=== PATIENT | male | born 1960 | race African-American/Black ===

== ENCOUNTER 2020-03-09 21:54 | Emergency (ER) | payer BC, OTHER ==
--- OUTSIDE RECORDS SUMMARY | 2020-03-09 21:58 | XMS REPORT | Clinical Summary ---
:1960 Author Organization [facility] Address [address] [place] [address] Care Team Providers Name Role Phone Magdaleno Webber DO Primary Care Provider Allergies Active Allergy Reactions Severity Noted Date Comments Lisinopril Other (See Comments) 06/24/2016 Cough Medications Medication Sig Dispensed Refills Start End Date Status Date insulin Use 2 syringes 200 each 1 Activ e syringe-needle daily 9 U-100 (BD INSULIN SYRINGE ULTRA-FINE) 0.3 mL 31 gauge x 5/16" syringeIndications : Uncontrolled type 2 diabetes mellitus with circulatory disorder, with long-term current use of insulin (HCC) magnesium oxide Take 1 tablet 180 tablet 3 05/14/20 Active (MAG-OX) 400 mg (400 mg total) 9 20 (241.3 mg by mouth 2 magnesium) tablet (two) times a day. aspirin (ECOTRIN) Take 1 tablet 90 tablet 3 06/23/20 Active 81 MG enteric (81 mg total) 9 20 coated tablet by mouth daily. predniSONE Take 1 tablet 90 tablet 3 06/23/20 Activ e (DELTASONE) 5 mg (5 mg total) 9 20 tablet by mouth daily. ergocalciferol Take 1 capsule 12 capsule 3 07/14/20 Active (VITAMIN D2) (50,000 Units 9 20 50,000 unit total) by capsule mouth once a week. Monday carvedilol (COREG) Take 1 tablet 180 tablet 3 Active 6.25 MG (6.25 mg 0 21 tabletIndications: total) by Essential mouth 2 (two) hypertension, times a day Heart replaced by with meals. transplant ([facility]) pantoprazole Take 1 tablet 90 tablet 3 11/25/19 Act damien (PROTONIX) 40 MG (40 mg total) 0 21 EC tablet by mouth daily. gabapentin Take 1 tablet 90 tablet 3 11/25/19 Activ e (NEURONTIN) 800 mg (800 mg total) 0 21 tablet by mouth nightly. pravastatin Take 1 tablet 90 tablet 3 11/25/19 Acti ve (PRAVACHOL) 80 MG (80 mg total) 0 21 tablet by mouth every evening. torsemide Take 2 tablets 360 tablet 3 11/25/19 Acti ve (DEMADEX) 20 MG (40 mg total) 0 21 tablet by mouth 2 (two) times a day. insulin NPH Inject 30 20 mL 5 Active (NovoLIN N NPH units in the 0 U-100 Insulin) 100 morning before unit/mL breakfast and injectionIndicatio 20 units in ns: Uncontrolled the evening type 2 diabetes before dinner mellitus with under the skin circulatory disorder, with long-term current use of insulin ([facility]) tacrolimus Take 3 90 capsule 0 Active (PROGRAF) 0.5 MG capsules (1.5 0 capsule mg total) by mouth every morning for 30 days. Z94.1 Heart TXP S/P tacrolimus Take 1 capsule 0 Acti ve (PROGRAF) 1 MG (1 mg total) 0 capsule by mouth daily. Z94.1 Heart TXP S/P insulin ASPART Inject 12 5 pen 3 Activ e (NovoLOG Flexpen units 3 times 0 U-100 Insulin) 100 a day before unit/mL (3 mL) each meal insulin along with penIndications: correction Uncontrolled type scale 2 diabetes mellitus with circulatory disorder, with long-term current use of insulin ([facility]) mycophenolate Take 1 tablet 60 tablet 11 02/17/20 Ac tive (CellCept) 500 mg (500 mg total) 0 21 tabletIndications: by mouth 2 Status post (two) times a orthotopic heart day. transplant ([facility]) pravastatin Take 1 tablet 30 tablet 11 04/09/20 Disc ontinued (PRAVACHOL) 80 MG (80 mg total) 8 19 (Reorder) tablet by mouth every evening. mycophenolate Take 3 tablets 180 tablet 11 06/24/20 Discontinued (CELLCEPT) 500 mg (1,500 mg 8 19 (R eorder) tablet total) by mouth 2 (two) times a day. Z94.1 heart / Z94.0 kidney transplant 03/08/2017 tacrolimus Take 1 capsule 120 capsule 11 08/05/20 Di scontinued (PROGRAF) 0.5 MG (0.5 mg total) 8 19 (Reorder) capsule by mouth every morning. TOTAL DOSE: 2.5 mg in AM and 2 mg in PM ergocalciferol Take 1 capsule 12 capsule 3 05/15/20 Discontinued (VITAMIN D2) (50,000 Units 9 19 (Re order) 50,000 unit total) by capsule mouth once a week. Monday tacrolimus Take 2 360 capsule 3 08/08/20 Discont inued (PROGRAF) 1 MG capsules (2 mg 9 19 (Reorder) capsule total) by mouth 2 (two) times a day. TOTAL DOSE: 2.5 mg in AM and 2 mg in PM. Z94.1 heart transplant aspirin (ECOTRIN) Take 1 tablet 90 tablet 3 05/15/20 Discontinued 81 MG enteric (81 mg total) 9 19 (R eorder) coated tablet by mouth daily. magnesium oxide Take 1 tablet 180 tablet 3 05/15/20 Discontinued (MAG-OX) 400 mg (400 mg total) 9 19 (Reorder) (241.3 mg by mouth 2 magnesium) tablet (two) times a day. insulin ASPART Inject 8-18 20 mL 5 01/31/20 Dis continued (NovoLOG Flexpen Units under 9 20 ( Reorder) U-100 Insulin) 100 the skin 3 unit/mL insulin (three) times penIndications: a day with Uncontrolled type meals. 2 diabetes mellitus with circulatory disorder, with long-term current use of insulin ([facility]) insulin NPH Inject 20 20 mL 5 03/08/201 03/19/20 Disconti nued (NovoLIN N NPH units in the 9 20 (R eorder) U-100 Insulin) 100 morning before unit/mL breakfast and injectionIndicatio 8 units in the ns: Uncontrolled evening before type 2 diabetes dinner under mellitus with the skin circulatory disorder, with long-term current use of insulin ([facility]) predniSONE Take 1 tablet 90 tablet 3 06/24/20 Disco ntinued (DELTASONE) 5 mg (5 mg total) 9 19 (Reorder) tablet by mouth daily. pantoprazole Take 1 tablet 90 tablet 3 11/26/19 Dis continued (PROTONIX) 40 MG (40 mg total) 9 20 (Reorder) EC tablet by mouth daily. gabapentin Take 1 tablet 90 tablet 3 04/09/20 Disco ntinued (NEURONTIN) 800 mg (800 mg total) 9 19 (Reorder) tablet by mouth nightly. torsemide Take 2 tablets 360 tablet 3 11/26/19 Disc ontinued (DEMADEX) 20 MG (40 mg total) 9 20 (Reorder) tablet by mouth 2 (two) times a day. gabapentin Take 1 tablet 90 tablet 3 11/26/19 Disco ntinued (NEURONTIN) 800 mg (800 mg total) 9 20 (Reorder) tablet by mouth nightly. pravastatin Take 1 tablet 90 tablet 3 11/26/19 Disc ontinued (PRAVACHOL) 80 MG (80 mg total) 9 20 (Reorder) tablet by mouth every evening. amLODIPine Take 1 tablet 90 tablet 3 10/22/19 Disco ntinued (NORVASC) 5 mg (5 mg total) 9 20 (S joni effects) tabletIndications: by mouth Essential daily. hypertension, Heart replaced by transplant ([facility]) ergocalciferol Take 1 capsule 12 capsule 3 06/24/20 Discontinued (VITAMIN D2) (50,000 Units 9 19 (Re order) 50,000 unit total) by capsule mouth once a week. Monday aspirin (ECOTRIN) Take 1 tablet 90 tablet 3 06/24/20 Discontinued 81 MG enteric (81 mg total) 9 19 (R eorder) coated tablet by mouth daily. mycophenolate Take 3 tablets 540 tablet 3 07/15/20 Discontinued (CELLCEPT) 500 mg (1,500 mg 9 19 (R eorder) tablet total) by mouth 2 (two) times a day. Z94.1 heart / Z94.0 kidney transplant 03/08/2017 ergocalciferol Take 1 capsule 12 capsule 3 07/15/20 Discontinued (VITAMIN D2) (50,000 Units 9 (Re order) 50,000 unit total) by capsule mouth once a week. Monday mycophenolate Take 3 tablets 540 tablet 3 01/02/20 Discontinued (CELLCEPT) 500 mg (1,500 mg 9 20 (S top Taking at tablet total) by Discharge) mouth 2 (two) times a day. Z94.1 heart / Z94.0 kidney transplant 03/08/2017 flu vacc Inject 0.5 mL 0.5 mL 0 07/31/20 d [id number] into the 07 04 up,PF (FLUZONE shoulder, HIGH-DOSE) 180 thigh, or mcg/0.5 mL syringe buttocks once IM for 1 dose. injectionIndicatio ns: Heart replaced by transplant (HCC) tacrolimus Take 1 capsule 90 capsule 3 08/09/20 Dis continued (PROGRAF) 0.5 MG (0.5 mg total) 9 19 (Reorder) capsule by mouth every morning. TOTAL DOSE: 2.5 mg in AM and 2 mg in PM tacrolimus Take 1 capsule 180 capsule 3 08/09/20 Di scontinued (PROGRAF) 1 MG (1 mg total) 9 19 (R eorder) capsule by mouth 2 (two) times a day. TOTAL DOSE: 2.5 mg in AM and 2 mg in PM. Z94.1 heart transplant tacrolimus Take 1 capsule 90 capsule 3 01/02/20 Dis continued (PROGRAF) 0.5 MG (0.5 mg total) 9 20 (Reorder) capsule by mouth every morning. Z94.1 Heart TXP S/P tacrolimus Take 1 capsule 180 capsule 3 11/26/19 Di scontinued (PROGRAF) 1 MG (1 mg total) 9 20 (R eorder) capsule by mouth 2 (two) times a day. Z94.1 Heart TXP S/P tacrolimus Take 1 capsule 180 capsule 3 11/26/19 Di scontinued (PROGRAF) 1 MG (1 mg total) 0 20 (R eorder) capsule by mouth 2 (two) times a day. Z94.1 Heart TXP S/P tacrolimus Take 1 capsule 180 capsule 3 12/24/19 Di scontinued (PROGRAF) 1 MG (1 mg total) 0 20 (R eorder) capsule by mouth 2 (two) times a day. Z94.1 Heart TXP S/P tacrolimus Take 1 capsule 180 capsule 3 01/02/20 Di scontinued (PROGRAF) 1 MG (1 mg total) 0 20 (R eorder) capsule by mouth 2 (two) times a day. Z94.1 Heart TXP S/P febuxostat Take 1 tablet 30 tablet 0 02/02/20 Expir ed (ULORIC) 40 mg (40 mg total) 0 20 tablet by mouth daily for 30 days. Active Problems Patient Care Coordination Note 03/08/17 Heart-Kidney Transplant (P ermanent MTC Rcd -do not delete) CMV neg / neg Type O At Transplant Status 1A with IABP Recieved induction with Simulect FK Goal:5-8 (per Dr. Ramirez 10/22/2019) Problem Noted Date Pneumonia due to infectious organism 12/30/2019 Fluid overload 01/15/2019 Long-term use of immunosuppressant medication 04/28/20 Overview: 03/08/17 Heart-Kidney Transplant (Permanent MTC Rcd -do not delete) CMV neg / neg Type O [id number] FK / MMF 1500/ pred Bactrim acyclovir 08/21/17 No DSA's 04/20/17 DSA Results cPRA Class I: 0 % Class I Final Donor Specific Antibodies: NONE Donor Specific Antibodies: NONE Hyperkalemia 04/25/2017 Status post orthotopic heart transplant 03/09/2017 Overview: 03/08/17 Heart-Kidney Transplant (P ermanent MTC Rcd -do not delete) CMV neg / neg Type O Status 1 A on IABP [id number] Ischemic 186 min [place] Visit Date Biopsy Score C4D Allo- Map Treatment Echo CMV Level Week 1 03/15/17 0R 60-64 TR-mod Week 2 03/22/17 1R Echo 60-64 TR moderate; P e ffusion 60-64 TR mod P effus Week 3 03/29/17 1R almost 0 Heart BX 1 R almost 0, C4d ne g Renal BX acute tublar injury C4D neg 65- 69 P effus TR mod Week 4 04/06/17 0 R ECho >70; smal pericardial ; smal TR >70 P eff Week 6 04/25/17 0 R Week 8 05/08/17 1 R FK decreased to 0.5/0.5: l asix 40 Terbutiline > to2.5 TID 16.7 Week 10 05/22/17 0 R Increase FK ^ 1 /0.5 5. 5 Week 12 06/05/17 06/22/17 06/26/17 0 R clinic Echo/DEXA Scan Cancelled r/t David Salazar Cath Only : SCr 1.9 / BNP 113 10.4 Month 4 07/17/17 0 R Stop V-Fend: ^ Fk to [facility] 07/21 [facility] 07/26 6.8 Month 5 08/21/17 0 R Stop terbutaline; SCr 1. 7 on FL 2.5/2.5 neg 8.8 Month 6 09/26/17 SCr 1.8 ; FK dose 2.5 / 2.5 60-64% neg 8.9 Month 7 10/24/17 SCr 1.8 ;FK dose 2.5 / 2.5 neg 10.1 Month 8 Month 9 11/21/17 12/04/17 SCr 1.6, BNP 54 65-69 neg 7.8 6.8 Month 10 12/19/17 Doing well SCr 1.8, BNP 67 8.5 Month 11 01/16/18 Doing well: Scr^1.9, BNP 69 , 7.8 on 2.5/2.5 Annual 03/05/19 Continue Pred; May cons ider Rapa conversion Month 15 05/21/19 SCr 1.8, BNP 68; Bactr im DC'ed; needs blood sugar control 9.0 10/22/2019 Discontinue Amlodipine for l ower extremity edema; Start Coreg 6.25 BID; Needs better glucose control and weight loss; 4.9 Status post kidney transplant 03/09/2017 Vitamin D deficiency 02/14/2017 Uncontrolled type 2 diabetes mellitus with kidney comp lication, without 02/13/2017 long-term current use of insulin Hyperlipidemia associated with type 2 diabetes mellitu s 02/13/2017 Hypokalemia 08/19/2016 Class 2 obesity in adult 08/17/2016 Arrhythmia Hypertension Encounters Date Type Specialty Care Team Description 03/04/2020 Telephone Transplant Woelfel, Rx Refill Re[facility] [place] 03/02/2020 Hospital Encounter Procedural Bhimaraj, Status po st orthotopic Cardiology MD Ghassan heart transplan t ([facility]) 03/02/2020 Travel 02/26/2020 Orders Only Transplant Dinh, Status post ort hotopic heart transplant ([facility]) (Primary Dx); JONNY Pappas Uncontrolled t ype 2 diabetes mellitus with kidney complication, without long-term current use of insulin ([facility]); Hyperlipidemia associated with type 2 diabetes mellitus (HCC); Other hypervole wanda; Status post kid jose transplant 02/19/2020 Travel 02/19/2020 Orders Only Transplant Dinh, Status post ort hotopic heart transplant (HCC) (Primary Dx); JONNY Pappas Uncontrolled t ype 2 diabetes mellitus with kidney complication, without long-term current use of insulin ([facility]); Hyperlipidemia associated with type 2 diabetes mellitus (HCC); Status post kid jose transplant; Long-term use o f immunosuppressant medication 02/19/2020 Orders Only Transplant Dinh, Status post ort hotopic JONNY Pappas heart transpla nt ([facility]) (Primary Dx) 02/17/2020 Transplant Transplant Webber, Status post ort hotopic heart transplant ([facility]) (Primary Dx); Telemedicine Magdaleno Blanco DO Essential hypertension; Yariel Imhubert, Vitamin D def iciency; Uncontrolled ty pe 2 diabetes mellitus with kidney complication, without long-term current use of insulin ([facility]); Hyperlipidemia associated with type 2 diabetes mellitus (HCC); Status post kid jose transplant; Long-term use o f immunosuppressant medication; Morbid obesity with BMI of 40.0-44.9, adult ([facility]) 02/17/2020 Lab Lab Jhonny Harrisoned (Юлия Ayala MD Error) 02/17/2020 Orders Only Transplant Dinh, Status post ort hotopic JONNY Pappas heart transpla nt ([facility]) (Primary Dx) 02/17/2020 Travel 02/11/2020 Documentation Transplant Elyse Dinh RN 02/11/2020 Travel 02/10/2020 Orders Only Transplant Dinh, Status post ort hotopic heart transplant (HCC) (Primary Dx); JONNY Pappas Status post ki dney transplant 02/10/2020 Travel 01/31/2020 Orders Only Endocrinology Jasen, Uncontrolled t ype 2 Marah MA diabetes mellit us with circulatory dis order, with long-term current use of insulin ([facility]) 01/31/2020 Telephone Transplant Adán, Giin Floreso w-up INOCENTE Brown Apt 01/27/2020 Refill Endocrinology Deondre Ortiz Uncontrolled t ype 2 Ced, [employer] diabetes mellit us with circulatory dis order, with long-term current use of insulin ([facility]) 01/08/2020 Documentation Transplant Eylse Dinh RN 01/08/2020 Telephone Transplant FER Miguel RN 01/03/2020 Documentation Transplant Elyse Dinh RN 01/02/2020 Documentation Transplant Mark Migule RN 12/30/2019 Hospital Encounter General Internal Ortiz, Pneum onia due to infectious organism, unspecified laterality, unspecified part of lung (Primary Dx); - Medicine [facility] Ava, Heart transpla nt recipient ([facility]); 01/02/2020 MD Kidney transplant recipient; Mitchell Goncalves, Uncontrolled type 2 diabetes mellitus with circulatory disorder, with long-term current use of insulin ([facility]) 12/30/2019 Travel 12/24/2019 Refill Transplant Levi, Nikkita Med Refill 11/26/2019 Refill Transplant Levi, Nikkita Med Refill 10/25/2019 Documentation Endocrinology Sasha Guaman MA 10/24/2019 Orders Only Transplant Dinh, Status post ort hotopic heart transplant (HCC) (Primary Dx); JONNY Pappas Status post ki dney transplant; Class 2 severe obesity due to excess calories with serious comorbidity and body mass index (BMI) of 39.0 to 39.9 in adult ([facility]); Uncontrolled ty pe 2 diabetes mellitus with complication ([facility]) 10/22/2019 Office Visit Transplant Solitario, Essential hyper tension (Primary Dx); MD Ghassan Status post orthotopic heart transplant ([facility]); Carolina Ramirez, Vitamin D def iciency; Uncontrolled ty pe 2 diabetes mellitus with kidney complication, without long-term current use of insulin ([facility]); Hyperlipidemia associated with type 2 diabetes mellitus ([facility]); Status post kid jose transplant; Long-term use o f immunosuppressant medication; Heart replaced by transplant (HCC) 10/22/2019 Orders Only Transplant Dinh, Status post ort hotopic heart transplant (HCC) (Primary Dx); JONNY Pappas Status post ki dney transplant 09/20/2019 Orders Only Transplant Dinh, Heart replaced by transplant ([facility]) (Primary Dx); JONNY Pappas Long-term use of immunosuppressant medication; Essential hyper tension; Vitamin D defic iency; Cytomegalovirus infection, unspecified cytomegaloviral infection type ([facility]); Complication of heart transplant, unspecified complication ([facility]); Bone disease; Disease of pros crandall; Hyperlipidemia associated with type 2 diabetes mellitus ([facility]); Stage 3 chronic kidney disease ([facility]) 09/19/2019 Telephone Transplant Manuel Sims [facility] 10[facility]22[facility]) 08/14/2019 Lab Lab Jag Jay Kidney replac ed by transplant (Primary Dx); MD Jamie Essential hyper tension, malignant; Proteinuria, un specified type; Anemia of chron ic renal failure, unspecified CKD stage; Chronic kidney disease, stage III (moderate) ([facility]); Disorder of chantelle sphorus metabolism; Hypermagnesemia 08/09/2019 Refill Transplant Adán, Med Refill INOCENTE Brown 08/08/2019 Refill Transplant Manuel Sims Med Refill 08/08/2019 Orders Only Transplant Dinh, Heart replaced by transplant ([facility]) (Primary Dx); JONNY Pappas Long-term use of immunosuppressant medication; Essential hyper tension; Status post kid jose transplant 08/08/2019 Documentation Transplant Elyse Dinh RN 08/07/2019 Lab Lab Jhonny Harrison Kidney replac ed by transplant (Primary Dx); MD Jamie Anemia of chron ic renal failure, unspecified CKD stage; Hypermagnesemia ; Proteinuria, un specified type; Essential hyper tension, malignant; Chronic kidney disease, stage III (moderate) ([facility]); Disorder of chantelle sphorus metabolism 08/05/2019 Refill Transplant Levi, Nikkita Med Refill 07/31/2019 Orders Only Transplant Dinh, Heart replaced by JONNY Pappas transplant ([facility]) (Primary Dx) 07/22/2019 Lab Lab hJonny Harrison Canceled (Юлия Ayala MD Order Error) 07/15/2019 Refill Transplant Levi, Nikkita Med Refill 06/26/2019 Telephone Transplant Pratima Flowers, Speak with co ord. INOCENTE 06/24/2019 Refill Transplant Levi, Nikkita Med Refill 05/15/2019 Refill Transplant Levi, Nikkita Med Refill 05/13/2019 Telephone Transplant Don, Rx Refill Reque st Kelly Wells MA 04/16/2019 Orders Only Transplant Dinh, Essential hyper tension (Primary Dx); JONNY Pappas Heart replaced by transplant (HCC) 04/16/2019 Refill Transplant Levi, Nikkita Med Refill 04/15/2019 Lab Lab Jag Jay Kidney replac ed by transplant (Primary Dx); MD Jamie Essential hyper tension, malignant; Proteinuria, un specified type; Anemia of chron ic renal failure, unspecified CKD stage; Chronic kidney disease, stage III (moderate) ([facility]); Disorder of chantelle sphorus metabolism; Hypermagnesemia 04/09/2019 Refill Transplant Levi, Nikkita Med Refill 04/08/2019 Lab Lab Jhonny Harrison Canceled (Юлия Ayala MD Error) 04/03/2019 Refill Transplant Levi, Nikkita Med Refill 03/21/2019 Refill Transplant Levi, Nikkita Med Refill after 03/09/2019 Immunizations Name Administration Dates Next Due FLUCELVAX QUAD PF 09/26/2017 Family History Medical History Relation Name Comments Diabetes Brother Heart disease Brother Hypertension Mother Wilfredo Mcbride Relation Name Status Comments Brother Father Mother Wilfredo Mcbride Alive Social History Tobacco Use Types Packs/Day Years Used Date Never Smoker Smokeless Tobacco: Never Used Alcohol Use Drinks/Week oz/Week Comments No Sex Assigned at Date Recorded Not on file Job Start Date Occupation Industry Not on file Not on file Not on file Travel History Travel Start Travel End No recent travel history available. COVID-19 Exposure Response Date Recorded In the last month, have you been in contact with No / Unsure 03/02/2020 9:26 AM CDT someone who was confirmed or suspected to have Coronavirus / COVID-19? Last Filed Vital Signs Vital Sign Reading Time Taken Comments Blood Pressure 116/68 01/02/2020 12:33 PM CDT Pulse 84 01/02/2020 12:33 PM CDT Temperature 36.2 C (97.2 F) 01/02/2020 12:33 PM CDT Respiratory Rate 20 01/02/2020 12:33 PM CDT Oxygen Saturation 92% 01/02/2020 12:33 PM CDT Inhaled Oxygen Concentration - - Weight 108 kg (237 lb 8 oz) 01/02/2020 5:50 AM CDT Height 162.6 cm (5' 4") 12/30/2019 7:34 AM CDT Body Mass Index 40.77 12/30/2019 7:34 AM CDT Plan of Treatment Date Type Specialty Care Team Description 03/17/2020 Lab Transplant 03/17/2020 Office Visit Transplant Ghassan Jerez MD [address] [place], [place] [phone] Health Maintenance Due Date Last Done Comments DIABETIC RETINAL EYE EXAM 1960 COLONOSCOPY SCREENING 2011 SHINGLES VACCINES (#1) 2011 DIABETIC FOOT EXAM 11/21/2019 11/21/2018, 11/21/2018 INFLUENZA VACCINE 05/16/2020 08/29/2018, 09/26/2017 Implants Implanted Type Area Mva Reactor Operator Head Device Shelf Model / Identifier Expiration Serial / Date Lot Lead Pace Deven Mycrdl Unipol Tmpry Streamline - [id number] Cardio vascular N/A: [employer] [facility] - 09/21/2018 [id number] / Implanted: Qty: 1 on 03/08/2017 by Fabio Mason MD at [facility] Implants N/A CARDIAC SRGRY / Lead Pace Deven Mycrdl Unipol Tmpry Streamline - [id number] Cardio vascular N/A: [employer] [facility] - 11/04/2018 [id number] / Implanted: Qty: 1 on 03/08/2017 by Fabio Mason MD at [facility] Implants N/A CARDIAC SRGRY / Lead Pace Deven Mycrdl Unipol Tmpry Streamline - [id number] Cardio vascular N/A: [employer] [facility] - 12/01/2018 [id number] / Implanted: Qty: 1 on 03/08/2017 by Fabio Mason MD at [facility] Implants N/A CARDIAC SRGRY / Lead Pace Deven Mycrdl Unipol Tmpry Streamline - [id number] Cardio vascular N/A: [employer] - 12/01/2018 [id number] / Implanted: Qty: 1 on 03/08/2017 by Fabio Mason MD at [facility] Implants N/A CARDIAC SRGRY / Endotak Bomoseen G Model [id number] Cm Df4 Tachy Lead - [id number] IPM CARDIAC DEFIB N/A: [place] 05/17/2018 [id number] / Implanted: 06/24/2016 at [facility] (Quantity not on file) N/A SCIENTIFIC- CRM [id number] / [id number] Icd Dual Chamber Inogen Mini Df4 - [id number] IPM CARDIAC DEFIB N/A: [place] 07/03/2016 [id number] / Implanted: 06/24/2016 at [facility] (Quantity not on file) N/A SCIENTIFIC- CRM [id number] / [id number] Ingevity Mri Pacing Lead 45cm - [id number] IMPLANT N/A: [place] 06/03/2018 [id number] / Implanted: 06/24/2016 at [facility] (Quantity not on file) DEV ICES N/A SCIENTIFIC- CRM [id number] / [id number] Catheter Dialysis Glidepath [id number] Symmetric Tip - [id number] Implantable N/A: BARD PERIPHERAL 07/15/2018 [id number] / Implanted: 02/20/2017 at [facility] (Quantity not on file) Infusion Ports or N/A VASCULAR / Accessories [id number] Particle [facility] Ana María 5gm Mph - [id number] Surgical N/A: [employer] 09/12/2021 [id number] / Implanted: 03/08/2017 at [facility] (Quantity not on file) Implants; N/A / Expanders; [id number] Extenders; Surgical Wires [facility] Vasclr Ptfe 1.2x10cm 1.65mm - [id number] Vascular Amy t N/A: BARD PERIPHERAL 10/12/2021 [id number] / Implanted: Qty: 1 on 03/08/2017 by Fbaio Mason MD at [facility] N/A VASCULAR / [id number] [employer] [facility] Vasclr Ptfe 1.2x10cm 1.65mm - [id number] Vascular Amy t N/A: BARD PERIPHERAL 09/12/2021 [id number] / Implanted: 03/08/2017 at [facility] (Quantity not on file) N/A VASCULAR / [id number] Defib Description:Defibrillator Procedures Procedure Name Priority Date/Time Associated Diagnosis Comme nts TTE COMPLETE, W Routine 03/02/2020 10:00 Status post orthotopi c Results for CONTRAST, W DOPPLER AM CDT heart transplant ([facility] ) this procedure ([id number]) are in the results section. DONOR SPECIFIC Routine 02/11/2020 6:55 Results f or ANTIBODY AM CDT this procedure are in the results section. MISCELLANEOUS REFERRAL STAT 02/11/2020 6:55 R esults for TEST AM CDT this procedure are in the results section. ESTIMATED GFR STAT 02/11/2020 6:55 Results fo r AM CDT this procedure are in the results section. B NATRIURETIC PEPTIDE STAT 02/11/2020 6:55 Heart replaced by Results for AM CDT transplant ([facility]) this procedure Long-term use of are in the immunosuppressant results medication section. Essential hypert ension Vitamin D defici ency Cytomegalovirus infection, unspecified cytomegaloviral infection type ( HCC) Complication of heart transplant, unspecified complication (HC C) Bone disease Disease of prost ate Hyperlipidemia associated with type 2 diabetes mellitu s ([facility]) Stage 3 chronic kidney disease ([facility]) VITAMIN D 25 HYDROXY STAT 02/11/2020 6:55 Heart replaced b y Results for LEVEL AM CDT transplant ([facility]) this procedure Long-term use of are in the immunosuppressant results medication section. Essential hypert ension Vitamin D defici ency Cytomegalovirus infection, unspecified cytomegaloviral infection type ( HCC) Complication of heart transplant, unspecified complication (HC C) Bone disease Disease of prost ate Hyperlipidemia associated with type 2 diabetes mellitu s (HCC) Stage 3 chronic kidney disease ([facility]) LIPID PANEL STAT 02/11/2020 6:55 Heart replaced by Result s for AM CDT transplant ([facility]) this procedure Long-term use of are in the immunosuppressant results medication section. Essential hypert ension Vitamin D defici ency Cytomegalovirus infection, unspecified cytomegaloviral infection type ( HCC) Complication of heart transplant, unspecified complication (HC C) Bone disease Disease of prost ate Hyperlipidemia associated with type 2 diabetes mellitu s (HCC) Stage 3 chronic kidney disease (HCC) FK506 TACROLIMUS STAT 02/11/2020 6:55 Heart replaced by Re sults for LEVEL, RANDOM AM CDT transplant (HCC) this procedure Long-term use of are in the immunosuppressant results medication section. Essential hypert ension Vitamin D defici ency Cytomegalovirus infection, unspecified cytomegaloviral infection type ( HCC) Complication of heart transplant, unspecified complication (HC C) Bone disease Disease of prost ate Hyperlipidemia associated with type 2 diabetes mellitu s (HCC) Stage 3 chronic kidney disease (HCC) PHOSPHORUS LEVEL STAT 02/11/2020 6:55 Heart replaced by Re sults for AM CDT transplant (HCC) this procedure Long-term use of are in the immunosuppressant results medication section. Essential hypert ension Vitamin D defici ency Cytomegalovirus infection, unspecified cytomegaloviral infection type ( HCC) Complication of heart transplant, unspecified complication (HC C) Bone disease Disease of prost ate Hyperlipidemia associated with type 2 diabetes mellitu s (HCC) Stage 3 chronic kidney disease (HCC) MAGNESIUM LEVEL STAT 02/11/2020 6:55 Heart replaced by Res ults for AM CDT transplant (HCC) this procedure Long-term use of are in the immunosuppressant results medication section. Essential hypert ension Vitamin D defici ency Cytomegalovirus infection, unspecified cytomegaloviral infection type ( HCC) Complication of heart transplant, unspecified complication (HC C) Bone disease Disease of prost ate Hyperlipidemia associated with type 2 diabetes mellitu s (HCC) Stage 3 chronic kidney disease (HCC) HEPATIC FUNCTION PANEL STAT 02/11/2020 6:55 Heart replaced by Results for AM CDT transplant (HCC) this procedure Long-term use of are in the immunosuppressant results medication section. Essential hypert ension Vitamin D defici ency Cytomegalovirus infection, unspecified cytomegaloviral infection type ( HCC) Complication of heart transplant, unspecified complication (HC C) Bone disease Disease of prost ate Hyperlipidemia associated with type 2 diabetes mellitu s (HCC) Stage 3 chronic kidney disease (HCC) HC COMPLETE BLD COUNT STAT 02/11/2020 6:55 Heart replaced by Results for W/AUTO DIFF AM CDT transplant (HCC) this procedure Long-term use of are in the immunosuppressant results medication section. Essential hypert ension Vitamin D defici ency Cytomegalovirus infection, unspecified cytomegaloviral infection type ( HCC) Complication of heart transplant, unspecified complication (HC C) Bone disease Disease of prost ate Hyperlipidemia associated with type 2 diabetes mellitu s (HCC) Stage 3 chronic kidney disease (HCC) BASIC METABOLIC PANEL STAT 02/11/2020 6:55 Heart replaced by Results for AM CDT transplant ([facility]) this procedure Long-term use of are in the immunosuppressant results medication section. Essential hypert ension Vitamin D defici ency Cytomegalovirus infection, unspecified cytomegaloviral infection type ( HCC) Complication of heart transplant, unspecified complication (HC C) Bone disease Disease of prost ate Hyperlipidemia associated with type 2 diabetes mellitu s (HCC) Stage 3 chronic kidney disease (HCC) POC GLUCOSE Routine 01/02/2020 12:32 Results for PM CDT this procedure are in the results section. LACTIC ACID LEVEL Routine 01/02/2020 9:50 Result s for AM CDT this procedure are in the results section. POC GLUCOSE Routine 01/02/2020 8:03 Results for AM CDT this procedure are in the results section. ESTIMATED GFR Routine 01/02/2020 4:05 Results fo r AM CDT this procedure are in the results section. FK506 TACROLIMUS Routine 01/02/2020 4:05 Results for LEVEL, TROUGH AM CDT this procedure are in the results section. PHOSPHORUS LEVEL Routine 01/02/2020 4:05 Results for AM CDT this procedure are in the results section. MAGNESIUM LEVEL Routine 01/02/2020 4:05 Results for AM CDT this procedure are in the results section. HC COMPLETE BLD COUNT Routine 01/02/2020 4:05 Re sults for W/AUTO DIFF AM CDT this procedure are in the results section. BASIC METABOLIC PANEL Routine 01/02/2020 4:05 Re sults for AM CDT this procedure are in the results section. POC GLUCOSE Routine 01/01/2020 8:00 Results for PM CDT this procedure are in the results section. POC GLUCOSE Routine 01/01/2020 5:27 Results for PM CDT this procedure are in the results section. XR CHEST 1 VW PORTABLE Routine 01/01/2020 12:06 R esults for PM CDT this procedure are in the results section. LACTIC ACID LEVEL Routine 01/01/2020 11:54 Result s for AM CDT this procedure are in the results section. POC GLUCOSE Routine 01/01/2020 11:53 Results for AM CDT this procedure are in the results section. POC GLUCOSE Routine 01/01/2020 8:05 Results for AM CDT this procedure are in the results section. ESTIMATED GFR Routine 01/01/2020 4:00 Results fo r AM CDT this procedure are in the results section. FK506 TACROLIMUS Routine 01/01/2020 4:00 Results for LEVEL, TROUGH AM CDT this procedure are in the results section. PHOSPHORUS LEVEL Routine 01/01/2020 4:00 Results for AM CDT this procedure are in the results section. MAGNESIUM LEVEL Routine 01/01/2020 4:00 Results for AM CDT this procedure are in the results section. HC COMPLETE BLD COUNT Routine 01/01/2020 4:00 Re sults for W/AUTO DIFF AM CDT this procedure are in the results section. BASIC METABOLIC PANEL Routine 01/01/2020 4:00 Re sults for AM CDT this procedure are in the results section. POC GLUCOSE Routine 12/31/2019 9:48 Results for PM CDT this procedure are in the results section. POC GLUCOSE Routine 12/31/2019 4:49 Results for PM CDT this procedure are in the results section. POC GLUCOSE Routine 12/31/2019 12:45 Results for PM CDT this procedure are in the results section. POC GLUCOSE Routine 12/31/2019 9:04 Results for AM CDT this procedure are in the results section. TTE LIMITED, WO Routine 12/31/2019 9:00 Results for CONTRAST, W DOPPLER AM CDT this pro cedure ([id number]) are in the results section. LACTIC ACID LEVEL Routine 12/31/2019 5:45 Result s for AM CDT this procedure are in the results section. ESTIMATED GFR Routine 12/31/2019 5:45 Results fo r AM CDT this procedure are in the results section. IMMUNOGLOBULIN G Routine 12/31/2019 5:45 Results for AM CDT this procedure are in the results section. FK506 TACROLIMUS Routine 12/31/2019 5:45 Results for LEVEL, TROUGH AM CDT this procedure are in the results section. PHOSPHORUS LEVEL Routine 12/31/2019 5:45 Results for AM CDT this procedure are in the results section. MAGNESIUM LEVEL Routine 12/31/2019 5:45 Results for AM CDT this procedure are in the results section. HC COMPLETE BLD COUNT Routine 12/31/2019 5:45 Re sults for W/AUTO DIFF AM CDT this procedure are in the results section. BASIC METABOLIC PANEL Routine 12/31/2019 5:45 Re sults for AM CDT this procedure are in the results section. POC GLUCOSE Routine 12/30/2019 9:00 Results for PM CDT this procedure are in the results section. GLUCOSE LEVEL Routine 12/30/2019 9:00 Results fo r PM CDT this procedure are in the results section. IMMUNOGLOBULIN G Routine 12/30/2019 9:00 Results for PM CDT this procedure are in the results section. LACTIC ACID LEVEL, Timed 12/30/2019 9:00 Resul ts for SEPSIS - NOW AND PM CDT this proced ure REPEAT 2X EVERY 3 are in the HOURS results section. ECG 12-LEAD Routine 12/30/2019 8:04 Results for PM CDT this procedure are in the results section. POC GLUCOSE Routine 12/30/2019 6:07 Results for PM CDT this procedure are in the results section. POC GLUCOSE Routine 12/30/2019 12:57 Results for PM CDT this procedure are in the results section. COVID-19 QUALITATIVE Routine 12/30/2019 10:10 Res ults for PCR AM CDT this procedure are in the results section. CT CHEST WO CONTRAST STAT 12/30/2019 9:01 Res ults for AM CDT this procedure are in the results section. ESTIMATED GFR STAT 12/30/2019 8:35 Results fo r AM CDT this procedure are in the results section. PARTIAL THROMBOPLASTIN STAT 12/30/2019 8:35 R esults for TIME (PTT) AM CDT this procedure are in the results section. PROTHROMBIN TIME WITH STAT 12/30/2019 8:35 Re sults for INR AM CDT this procedure are in the results section. HC COMPLETE BLD COUNT STAT 12/30/2019 8:35 Re sults for W/AUTO DIFF AM CDT this procedure are in the results section. LACTIC ACID LEVEL, STAT 12/30/2019 8:35 Resul ts for SEPSIS - NOW AND AM CDT this proced ure REPEAT 2X EVERY 3 are in the HOURS results section. COMPREHENSIVE STAT 12/30/2019 8:35 Results fo r METABOLIC PANEL AM CDT this procedu re are in the results section. BLOOD CULTURE, AEROBIC Routine 12/30/2019 8:35 R esults for & ANAEROBIC AM CDT this procedure are in the results section. BLOOD CULTURE, AEROBIC Routine 12/30/2019 8:35 R esults for & ANAEROBIC AM CDT this procedure are in the results section. RESPIRATORY PATHOGEN Routine 12/30/2019 7:58 Res ults for PANEL AM CDT this procedure are in the results section. INFLUENZA ANTIGEN Routine 12/30/2019 7:58 Result s for TEST, REFLEX NEGATIVE AM CDT this p rocedure TO RPP are in the results section. IN CRITICAL CARE, E/M Routine 12/30/2019 7:53 Re sults for 30-74 MINUTES AM CDT this procedure are in the results section. STREP SCREEN CULTURE Routine 12/30/2019 7:28 Res ults for AM CDT this procedure are in the results section. GROUP A STREP, RAPID Routine 12/30/2019 7:28 Res ults for ANTIGEN AM CDT this procedure are in the results section. CREATININE LEVEL, Routine 10/22/2019 10:00 Result s for URINE, RANDOM AM TELEVISION SPECIALIST this procedure are in the results section. BK VIRUS BY PCR Routine 10/22/2019 9:43 Status post orthotopi c Results for AM TELEVISION SPECIALIST heart transplant ([facility]) this procedure Status post kidney are in th e transplant results section. CYTOMEGALOVIRUS BY PCR STAT 10/22/2019 9:43 Status post or thotopic Results for AM TELEVISION SPECIALIST heart transplant ([facility]) this procedure Status post kidney are in th e transplant results section. OLGA-HYDE VIRUS STAT 10/22/2019 9:43 Status post orthot opic Results for ANTIBODY TEST AM TELEVISION SPECIALIST heart transplant ([facility]) this procedure Status post kidney are in th e transplant results section. HEMOGLOBIN A1C Routine 10/22/2019 9:43 Uncontrolled type 2 Re sults for AM TELEVISION SPECIALIST diabetes mellitus with this procedure circulatory disorder, are in the with long-term current resul ts use of insulin ([facility]) section . ECG 12-LEAD Routine 10/22/2019 7:27 Heart replaced by Result s for AM TELEVISION SPECIALIST transplant ([facility]) this proced ure are in the results section. ESTIMATED GFR STAT 10/22/2019 6:51 Results fo r AM TELEVISION SPECIALIST this procedure are in the results section. B NATRIURETIC PEPTIDE STAT 10/22/2019 6:51 Heart replaced by Results for AM TELEVISION SPECIALIST transplant ([facility]) this procedure Long-term use of are in the immunosuppressant results medication section. Essential hypert ension Vitamin D defici ency Cytomegalovirus infection, unspecified cytomegaloviral infection type ( HCC) Complication of heart transplant, unspecified complication (HC C) Bone disease Disease of prost ate Hyperlipidemia associated with type 2 diabetes mellitu s (HCC) Stage 3 chronic kidney disease (HCC) FK506 TACROLIMUS STAT 10/22/2019 6:51 Heart replaced by Re sults for LEVEL, RANDOM AM TELEVISION SPECIALIST transplant (HCC) this procedure Long-term use of are in the immunosuppressant results medication section. Essential hypert ension Vitamin D defici ency Cytomegalovirus infection, unspecified cytomegaloviral infection type ( HCC) Complication of heart transplant, unspecified complication (HC C) Bone disease Disease of prost ate Hyperlipidemia associated with type 2 diabetes mellitu s (HCC) Stage 3 chronic kidney disease (HCC) PHOSPHORUS LEVEL STAT 10/22/2019 6:51 Heart replaced by Re sults for AM TELEVISION SPECIALIST transplant (HCC) this procedure Long-term use of are in the immunosuppressant results medication section. Essential hypert ension Vitamin D defici ency Cytomegalovirus infection, unspecified cytomegaloviral infection type ( HCC) Complication of heart transplant, unspecified complication (HC C) Bone disease Disease of prost ate Hyperlipidemia associated with type 2 diabetes mellitu s (HCC) Stage 3 chronic kidney disease (HCC) MAGNESIUM LEVEL STAT 10/22/2019 6:51 Heart replaced by Res ults for AM TELEVISION SPECIALIST transplant (HCC) this procedure Long-term use of are in the immunosuppressant results medication section. Essential hypert ension Vitamin D defici ency Cytomegalovirus infection, unspecified cytomegaloviral infection type ( HCC) Complication of heart transplant, unspecified complication (HC C) Bone disease Disease of prost ate Hyperlipidemia associated with type 2 diabetes mellitu s (HCC) Stage 3 chronic kidney disease (HCC) HEPATIC FUNCTION PANEL STAT 10/22/2019 6:51 Heart replaced by Results for AM TELEVISION SPECIALIST transplant (HCC) this procedure Long-term use of are in the immunosuppressant results medication section. Essential hypert ension Vitamin D defici ency Cytomegalovirus infection, unspecified cytomegaloviral infection type ( HCC) Complication of heart transplant, unspecified complication (HC C) Bone disease Disease of prost ate Hyperlipidemia associated with type 2 diabetes mellitu s (HCC) Stage 3 chronic kidney disease (HCC) HC COMPLETE BLD COUNT STAT 10/22/2019 6:51 Heart replaced by Results for W/AUTO DIFF AM TELEVISION SPECIALIST transplant (HCC) this procedure Long-term use of are in the immunosuppressant results medication section. Essential hypert ension Vitamin D defici ency Cytomegalovirus infection, unspecified cytomegaloviral infection type ( HCC) Complication of heart transplant, unspecified complication (HC C) Bone disease Disease of prost ate Hyperlipidemia associated with type 2 diabetes mellitu s (HCC) Stage 3 chronic kidney disease (HCC) BASIC METABOLIC PANEL STAT 10/22/2019 6:51 Heart replaced by Results for AM TELEVISION SPECIALIST transplant (HCC) this procedure Long-term use of are in the immunosuppressant results medication section. Essential hypert ension Vitamin D defici ency Cytomegalovirus infection, unspecified cytomegaloviral infection type ( HCC) Complication of heart transplant, unspecified complication (HC C) Bone disease Disease of prost ate Hyperlipidemia associated with type 2 diabetes mellitu s (HCC) Stage 3 chronic kidney disease (HCC) ESTIMATED GFR Routine 08/14/2019 8:29 Results fo r AM CDT this procedure are in the results section. FK506 TACROLIMUS Routine 08/14/2019 8:29 Kidney replaced by R esults for LEVEL, RANDOM AM CDT transplant this procedure Essential hypertension, are in the malignant results Proteinuria, section. unspecified type Anemia of chronic renal failure, unspecified CKD stage Chronic kidney disease, stage III (moderate) (HCC) Disorder of phosphorus metabolism Hypermagnesemia PROTEIN, URINE, RANDOM Routine 08/14/2019 8:29 Kidney replace d by Results for AM CDT transplant this procedure Essential hypertension, are in the malignant results Proteinuria, section. unspecified type Anemia of chronic renal failure, unspecified CKD stage Chronic kidney disease, stage III (moderate) (HCC) Disorder of phosphorus metabolism Hypermagnesemia CREATININE LEVEL, Routine 08/14/2019 8:29 Kidney replaced by Results for URINE, RANDOM AM CDT transplant this procedure Essential hypertension, are in the malignant results Proteinuria, section. unspecified type Anemia of chronic renal failure, unspecified CKD stage Chronic kidney disease, stage III (moderate) (HCC) Disorder of phosphorus metabolism Hypermagnesemia URINALYSIS SCREEN AND Routine 08/14/2019 8:29 Kidney replaced by Results for MICROSCOPY, WITH AM CDT transplant this procedure REFLEX TO CULTURE Essential hypertension, are in the malignant results Proteinuria, section. unspecified type Anemia of chronic renal failure, unspecified CKD stage Chronic kidney disease, stage III (moderate) (HCC) Disorder of phosphorus metabolism Hypermagnesemia LDH Routine 08/14/2019 8:29 Kidney replaced by Resul ts for AM CDT transplant this procedure Essential hypertension, are in the malignant results Proteinuria, section. unspecified type Anemia of chronic renal failure, unspecified CKD stage Chronic kidney disease, stage III (moderate) (HCC) Disorder of phosphorus metabolism Hypermagnesemia URIC ACID LEVEL Routine 08/14/2019 8:29 Kidney replaced by Re sults for AM CDT transplant this procedure Essential hypertension, are in the malignant results Proteinuria, section. unspecified type Anemia of chronic renal failure, unspecified CKD stage Chronic kidney disease, stage III (moderate) (HCC) Disorder of phosphorus metabolism Hypermagnesemia PHOSPHORUS LEVEL Routine 08/14/2019 8:29 Kidney replaced by R esults for AM CDT transplant this procedure Essential hypertension, are in the malignant results Proteinuria, section. unspecified type Anemia of chronic renal failure, unspecified CKD stage Chronic kidney disease, stage III (moderate) (HCC) Disorder of phosphorus metabolism Hypermagnesemia MAGNESIUM LEVEL Routine 08/14/2019 8:29 Kidney replaced by Re sults for AM CDT transplant this procedure Essential hypertension, are in the malignant results Proteinuria, section. unspecified type Anemia of chronic renal failure, unspecified CKD stage Chronic kidney disease, stage III (moderate) (HCC) Disorder of phosphorus metabolism Hypermagnesemia HC COMPLETE BLD COUNT Routine 08/14/2019 8:29 Kidney replaced by Results for W/AUTO DIFF AM CDT transplant this procedure Essential hypertension, are in the malignant results Proteinuria, section. unspecified type Anemia of chronic renal failure, unspecified CKD stage Chronic kidney disease, stage III (moderate) (HCC) Disorder of phosphorus metabolism Hypermagnesemia COMPREHENSIVE Routine 08/14/2019 8:29 Kidney replaced by Resu lts for METABOLIC PANEL AM CDT transplant this procedure Essential hypertension, are in the malignant results Proteinuria, section. unspecified type Anemia of chronic renal failure, unspecified CKD stage Chronic kidney disease, stage III (moderate) (HCC) Disorder of phosphorus metabolism Hypermagnesemia URINE CULTURE Routine 08/14/2019 8:29 Results fo r AM CDT this procedure are in the results section. ESTIMATED GFR Routine 08/07/2019 6:49 Results fo r AM CDT this procedure are in the results section. FK506 TACROLIMUS Routine 08/07/2019 6:49 Kidney replaced by R esults for LEVEL, RANDOM AM CDT transplant this procedure Anemia of chronic renal are in the failure, unspecified results CKD stage section. Hypermagnesemia Proteinuria, unspecified type Essential hypertension, malignant Chronic kidney disease, stage III (moderate) (HCC) Disorder of phosphorus metabolism COMPREHENSIVE Routine 08/07/2019 6:49 Kidney replaced by Resu lts for METABOLIC PANEL AM CDT transplant this procedure Anemia of chronic renal are in the failure, unspecified results CKD stage section. Hypermagnesemia Proteinuria, unspecified type Essential hypertension, malignant Chronic kidney disease, stage III (moderate) (HCC) Disorder of phosphorus metabolism PROTEIN, URINE, RANDOM Routine 08/07/2019 6:49 Kidney replace d by Results for AM CDT transplant this procedure Anemia of chronic renal are in the failure, unspecified results CKD stage section. Hypermagnesemia Proteinuria, unspecified type Essential hypertension, malignant Chronic kidney disease, stage III (moderate) (HCC) Disorder of phosphorus metabolism CREATININE LEVEL, Routine 08/07/2019 6:49 Kidney replaced by Results for URINE, RANDOM AM CDT transplant this procedure Anemia of chronic renal are in the failure, unspecified results CKD stage section. Hypermagnesemia Proteinuria, unspecified type Essential hypertension, malignant Chronic kidney disease, stage III (moderate) (HCC) Disorder of phosphorus metabolism URINALYSIS SCREEN AND Routine 08/07/2019 6:49 Kidney replaced by Results for MICROSCOPY, WITH AM CDT transplant this procedure REFLEX TO CULTURE Anemia of chronic renal are in the failure, unspecified results CKD stage section. Hypermagnesemia Proteinuria, unspecified type Essential hypertension, malignant Chronic kidney disease, stage III (moderate) (HCC) Disorder of phosphorus metabolism LDH Routine 08/07/2019 6:49 Kidney replaced by Resul ts for AM CDT transplant this procedure Anemia of chronic renal are in the failure, unspecified results CKD stage section. Hypermagnesemia Proteinuria, unspecified type Essential hypertension, malignant Chronic kidney disease, stage III (moderate) (HCC) Disorder of phosphorus metabolism URIC ACID LEVEL Routine 08/07/2019 6:49 Kidney replaced by Re sults for AM CDT transplant this procedure Anemia of chronic renal are in the failure, unspecified results CKD stage section. Hypermagnesemia Proteinuria, unspecified type Essential hypertension, malignant Chronic kidney disease, stage III (moderate) (HCC) Disorder of phosphorus metabolism PHOSPHORUS LEVEL Routine 08/07/2019 6:49 Kidney replaced by R esults for AM CDT transplant this procedure Anemia of chronic renal are in the failure, unspecified results CKD stage section. Hypermagnesemia Proteinuria, unspecified type Essential hypertension, malignant Chronic kidney disease, stage III (moderate) (HCC) Disorder of phosphorus metabolism MAGNESIUM LEVEL Routine 08/07/2019 6:49 Kidney replaced by Re sults for AM CDT transplant this procedure Anemia of chronic renal are in the failure, unspecified results CKD stage section. Hypermagnesemia Proteinuria, unspecified type Essential hypertension, malignant Chronic kidney disease, stage III (moderate) (HCC) Disorder of phosphorus metabolism HC COMPLETE BLD COUNT Routine 08/07/2019 6:49 Kidney replaced by Results for W/AUTO DIFF AM CDT transplant this procedure Anemia of chronic renal are in the failure, unspecified results CKD stage section. Hypermagnesemia Proteinuria, unspecified type Essential hypertension, malignant Chronic kidney disease, stage III (moderate) (HCC) Disorder of phosphorus metabolism URINE CULTURE Routine 08/07/2019 6:49 Results fo r AM CDT this procedure are in the results section. ESTIMATED GFR Routine 04/15/2019 8:07 Results fo r AM CDT this procedure are in the results section. FK506 TACROLIMUS Routine 04/15/2019 8:07 Kidney replaced by R esults for LEVEL, RANDOM AM CDT transplant this procedure Essential hypertension, are in the malignant results Proteinuria, section. unspecified type Anemia of chronic renal failure, unspecified CKD stage Chronic kidney disease, stage III (moderate) (HCC) Disorder of phosphorus metabolism Hypermagnesemia PROTEIN, URINE, RANDOM Routine 04/15/2019 8:07 Kidney replace d by Results for AM CDT transplant this procedure Essential hypertension, are in the malignant results Proteinuria, section. unspecified type Anemia of chronic renal failure, unspecified CKD stage Chronic kidney disease, stage III (moderate) (HCC) Disorder of phosphorus metabolism Hypermagnesemia CREATININE LEVEL, Routine 04/15/2019 8:07 Kidney replaced by Results for URINE, RANDOM AM CDT transplant this procedure Essential hypertension, are in the malignant results Proteinuria, section. unspecified type Anemia of chronic renal failure, unspecified CKD stage Chronic kidney disease, stage III (moderate) (HCC) Disorder of phosphorus metabolism Hypermagnesemia URINALYSIS SCREEN AND Routine 04/15/2019 8:07 Kidney replaced by Results for MICROSCOPY, WITH AM CDT transplant this procedure REFLEX TO CULTURE Essential hypertension, are in the malignant results Proteinuria, section. unspecified type Anemia of chronic renal failure, unspecified CKD stage Chronic kidney disease, stage III (moderate) (HCC) Disorder of phosphorus metabolism Hypermagnesemia LDH Routine 04/15/2019 8:07 Kidney replaced by Resul ts for AM CDT transplant this procedure Essential hypertension, are in the malignant results Proteinuria, section. unspecified type Anemia of chronic renal failure, unspecified CKD stage Chronic kidney disease, stage III (moderate) (HCC) Disorder of phosphorus metabolism Hypermagnesemia URIC ACID LEVEL Routine 04/15/2019 8:07 Kidney replaced by Re sults for AM CDT transplant this procedure Essential hypertension, are in the malignant results Proteinuria, section. unspecified type Anemia of chronic renal failure, unspecified CKD stage Chronic kidney disease, stage III (moderate) (HCC) Disorder of phosphorus metabolism Hypermagnesemia PHOSPHORUS LEVEL Routine 04/15/2019 8:07 Kidney replaced by R esults for AM CDT transplant this procedure Essential hypertension, are in the malignant results Proteinuria, section. unspecified type Anemia of chronic renal failure, unspecified CKD stage Chronic kidney disease, stage III (moderate) (HCC) Disorder of phosphorus metabolism Hypermagnesemia HC COMPLETE BLD COUNT Routine 04/15/2019 8:07 Kidney replaced by Results for W/AUTO DIFF AM CDT transplant this procedure Essential hypertension, are in the malignant results Proteinuria, section. unspecified type Anemia of chronic renal failure, unspecified CKD stage Chronic kidney disease, stage III (moderate) (HCC) Disorder of phosphorus metabolism Hypermagnesemia COMPREHENSIVE Routine 04/15/2019 8:07 Kidney replaced by Resu lts for METABOLIC PANEL AM CDT transplant this procedure Essential hypertension, are in the malignant results Proteinuria, section. unspecified type Anemia of chronic renal failure, unspecified CKD stage Chronic kidney disease, stage III (moderate) (HCC) Disorder of phosphorus metabolism Hypermagnesemia URINE CULTURE Routine 04/15/2019 8:07 Results fo r AM CDT this procedure are in the results section. MAGNESIUM LEVEL STAT 04/15/2019 7:46 Kidney replaced by Re sults for AM CDT transplant this procedure Essential hypertension, are in the malignant results Proteinuria, section. unspecified type Anemia of chronic renal failure, unspecified CKD stage Chronic kidney disease, stage III (moderate) (HCC) Disorder of phosphorus metabolism Hypermagnesemia after 03/09/2019 Results Transthoracic Echocardiogram Complete, (w Contrast, Strain and 3D if needed) (03/02/2020 10:00 AM CDT) Specimen Narrative Performed At [facility] Echo cardiography Report [address] [address] Pat.Name: JEROME NAIR Pat.ID: [id number] .Date: 03/02/2020 Refer.MD: GHASSAN JEREZ MD Exam Time: 9:50:00 AM Study Type:Shirley palomo Echo Height: 64.17in Weight: 237lb BSA: 2.11 m2 Ag e: 1960,59Y Sex: MALE BP: 96/49 HR: 80 bpm Sonogr phr: Shania Mendez RDCS Pat. Stat.:Outpatient Room: [facility] 26 Study Status:Final Echo Event ID:[id number] Order ID: [id number] Reason for Study:Cardiac transplant, mon itoring for rejection History / Clinical:OHT,KIDNEY TRANSPLANT Procedures: 2D Echo, Colorflow Doppler, Intravenous Definity Contrast Race: B SUMMARY: Estimated EF is 65-69% RV systolic function is normal. Normal diastolic function and LV filling pressures. Unable to assess PA systolic pressure de spite use of contrast. No intracardiac flow abnormalities detec mecca by Doppler. FINDINGS: LV: LV size is normal. LV EF is normal. Overall wall motion is normal. Estimated EF is 6 5-69% RV: RV size is normal. RV systo lic function is normal. LA: LA volume is enlarged. RA: RA size is normal. AO: Aortic root diameter is nor mal. KARTHIK: No pericardial effusion. AV: No structural AV abnormalit ies noted. MV: No structural MV abnormalit ies noted. PV: Pulmonic valve not well see n. TV: No structural TV abnormalit ies noted. Jackson: Normal diastolic function an d LV filling pressures. Other: Unable to assess PA systolic pressure despite use of contrast. No intracardiac flow abnormalities detected by Doppler. MEASUREMENTS: 2D Parasternal [place] Ao An 2.1 cm LVPWd 0.7 cm Ao Rtd 2.6 cm Index 1.2 cm/m2 LA Ds 3.7 cm IVSd 0.61 cm RWT 0.33 LVIDd 4.2 cm Index 2 cm/m2 LV Mass 77 g (122-1 74)* LVIDs 2.4 cm LVM In dex 37 g/m LV%fs 42 % LVOT 2 cm LVOT LVOT Area 3 cm DOPPLER LVOT Stroke Vol LVOT TVI 22 cm HR 69 bpm LVOT LVOT SV 66 ml LVOT CO 4.6 l/min SVi 31 ml/m LVOT C I 2.2 l/m/m Signed 03/03/2020 11:07 AM Clayton Conrad M.D. Procedure Note Interface, Radiology Results In - 2019 11:07 AM CDT Echocardiography Report [address] [place] [address] Pat.Name: JEROME NAIR Pat.I D: [id number] St.Date: 03/02/2020 Refer .MD: GHASSAN JEREZ MD Exam Time: 9:50:00 AM Study Type:Routine Echo Height: 64.17in Weigh t: 237lb BSA: 2.11 m2 Age: 2 1960,59Y Sex: MALE BP: 96/49 HR: 80 bpm Sonog rphr: Shania Mendez RDCS Pat. Stat.:Outpatient Room: [facility] 26 Study Status:Final Echo Event ID:[id number] Order ID: [id number] Reason for Study:Cardiac transplant, mon itoring for rejection History / Clinical:OHT,KIDNEY TRANSPLANT Procedures: 2D Echo, Colorflow Doppler, Intravenous Definity Contrast Race: B SUMMARY: Estimated EF is 65-69% RV systolic function is normal. Normal diastolic function and LV filling pressures. Unable to assess PA systolic pressure de spite use of contrast. No intracardiac flow abnormalities detec mecca by Doppler. FINDINGS: LV: LV size is normal. LV EF is no rmal. Overall wall motion is normal. Estimated EF is 65-69% RV: RV size is normal. RV systolic function is normal. LA: LA volume is enlarged. RA: RA size is normal. AO: Aortic root diameter is normal . KARTHIK: No pericardial effusion. AV: No structural AV abnormalities noted. MV: No structural MV abnormalities noted. PV: Pulmonic valve not well seen. TV: No structural TV abnormalities noted. Jackson: Normal diastolic function and LV filling pressures. Other: Unable to assess PA systolic p ressure despite use of contrast. No intracardiac flow abnormalities detected by Doppler. MEASUREMENTS: 2D Parasternal [place] Ao An 2.1 cm LVPW d 0.7 cm Ao Rtd 2.6 cm Inde x 1.2 cm/m2 LA Ds 3.7 cm IVSd 0.61 cm RWT 0.33 LVIDd 4.2 cm Inde x 2 cm/m2 LV Mass 77 g (122-174)* LVIDs 2.4 cm LVM Index 37 g/m LV%fs 42 % LVOT 2 cm LVOT LVOT Area 3 cm DOPPLER LVOT Stroke Vol LVOT TVI 22 cm HR 69 bpm LVOT LVOT SV 66 ml LVOT CO 4.6 l/min SVi 31 ml/m LVO T CI 2.2 l/m/m Signed 03/03/2020 11:07 AM Clayton Conrad M.D. Performing Organization Address City/[facility]/Zipcode Phone Number [facility] [address] [place] [address] Estimated GFR (02/11/2020 6:55 AM CDT)Only the most recent of9 resultswithin the time period is included. Pathologist [facility] Estimated GFR 48 (A) mL/min/1.73 [facility] Comment: HOSPITAL Catergory Units Interpretation G1 >=90 Normal or high G2 60-89 Mildly decreased G3a 45-59 Mildly to moderately decreas ed G3b 30-44 Moderately to severely decre ased G4 15-29 Severely decreased G5 <15 Kidney failure The eGFR was calculated using the Chronic Kidney Disea se Epidemiology Collaboration (CKD-EPI) equation. Interpretation is based on recommendations of the National Kidney Foundation-Kidney Disease Outcomes Krzysztof lity Initiative (NKF-KDOQI) published in 2014. Specimen Performing Organization Address [facility] Cent[facility]ode Phone Number [facility] DEPARTMENT OF PATHOLOGY AND [address] [place] [phone] GENOMIC MEDICINE [address] [address] Miscellaneous referral test (02/11/2020 6:55 AM CDT) Pathologist [facility] Mis test name CMV QUANT PCR SHOWN ABOVE Misc test result see note SHOWN ABOVE Comment: CMV PCR (Plasma) Results: Not Detected Assay range: 96 IU/mL to 1.88E+08 IU/mL One IU is equal to 0.53 copies of CMV Expected value: Not Detected Test performed by: [facility] [address] [place] [address] Specimen Narrative Performed At CMVPR - Cytomegalovirus (CMV) Quantitative [facility] DEPARTM ENT OF PATHOLOGY AND GENOMIC Real-time PCR MEDICINE [facility] Test code: 5500 Source: PLASMA Performing Organization Address City/[facility]/Zipcode Phone Number [facility] DEPARTMENT OF PATHOLOGY AND [address] [place] [phone] GENOMIC MEDICINE SHOWN ABOVE Donor specific antibody (02/11/2020 6:55 AM CDT) Pathologist [facility] DSA serum ID [id number] [address] DSA serum collection 02/11/2020 06:55 [facility] D&T [facility] DSA class I antibody B76 [facility] DSA antibody I NONE [facility] DSA cPRA class I [address] [facility] DSA class II DP14 [facility] DSA antibody II WEAK DP14 [facility] DSA cPRA class II [address] [facility] Donor specific See link below [facility] antibody for PDF Lab HOSPITAL Report Specimen Blood Performing Organization Address City/State/Zipcode Phone Number [facility] DEPARTMENT OF PATHOLOGY AND [address] [place] [phone] [facility] FK506 Tacrolimus level, random (02/11/2020 6:55 AM CDT)Only the most recent of5 resultswithin the time period is included. [facility] FK506 level 6.2 ng/mL [facility] Comment: HOSPITAL Therapeutic range 5-20 ng/mL for 12 hour trough. The r jose varies depending on the organ transplanted, time after transplantation and co-administered immunosuppressant therapies. Please use clinical judgment to interpret test result. Test performed using [employer] Adult [facility] Clinical Nurse Specialist chemiluminescent microparticle immunoassay for Tacrolimus on the [employer] i System. Specimen Blood Performing Organization Address City/[facility]/Zipcode Phone Number [facility] DEPARTMENT OF PATHOLOGY AND [address] [place] [address] [phone] [address] Vitamin D 25 hydroxy level (02/11/2020 6:55 AM CDT) [facility] Vitamin D, 30.8 30.0 - 150.0 [facility] 25-hydroxy Comment: ng/mL HOSPITAL This assay reports the sum of 25-hydroxy vitamin D3 an d 25-hydroxy vitamin D2. Reference range: 0-17 years: Deficiency: less than 20ng/mL Optimum level: greater than or equal to 20 ng/mL. 18 years and older: Deficiency: less than 20ng/mL Insufficiency: 20-29 ng/mL Optimum Level: 30-80 ng/mL The assay reportable range is 3.4 155.9 ng/mL. Level s higher than 150 ng/mL may be associated with toxicity. If toxicity is clinically suspected and the reported r esult is >155.9 ng/mL,contact lab for alternative methods to obtain a definitive level. If separate quantitation of 25-hydroxy vitamin D3 and 25-hydroxy vitamin D2 is needed, please contact lab for alternative methods. Specimen Blood Performing Organization Address City/State/Zipcode Phone Number [facility] DEPARTMENT OF PATHOLOGY AND [address] [place], [place] [address] [address] CBC with platelet and differential (02/11/2020 6:55 AM CDT)Only the most recent of9 resultswithin the time period is included. WBC 8.14 4.50 - 11.00 [facility] k/uL [facility] RBC 4.05 (L) 4.40 - 6.00 [facility] m/[facility] HGB 11.7 (L) 14.0 - 18.0 [facility] g/dL [facility] HCT 38.9 (L) 41.0 - 51.0 % [facility] MCV 96.0 82.0 - 100.0 [facility] MCH 28.9 27.0 - 34.[address] [facility] MCHC 30.1 (L) 31.0 - 37.0 [facility] g/dL [facility] RDW - SD 46.3 37.0 - 55.[address] [facility] MPV 10.8 8.8 - 13.[address] [facility] Platelet count 230 150 - 400 k/uL [facility] Nucleated RBC 0.00 /[address] [facility] Neutrophils 57.7 39.0 - 69.0 % [facility] Lymphocytes 27.5 25.0 - 45.0 % [facility] Monocytes 9.6 0.0 - 10.0 % [facility] Eosinophils 4.2 0.0 - 5.0 % [facility] Basophils 0.6 0.0 - 1.0 % [facility] Immature granulocytes 0.4Comment: 0.0 - 1.0 % [facility] "Immature HOSPITAL granulocytes" (promyelocytes , myelocytes, metamyelocytes ) Specimen Blood Performing Organization Address City/[facility]/Zipcode Phone Number [facility] DEPARTMENT OF PATHOLOGY AND [address] [place], [place] [address] [address] Phosphorus level (02/11/2020 6:55 AM CDT)Only the most recent of8 resultswithin the time period is included. Pathologist Sig nature Phosphorus 4.5 2.4 - 4.5 mg/dL [facility] L Specimen Blood Performing Organization Address [facility] Phone Number [facility] DEPARTMENT OF PATHOLOGY AND [address] [place] [phone] B natriuretic peptide (02/11/2020 6:55 AM CDT)Only the most recent of2 results within the time period is included. Pathologist Sig nature BNP 120 (H) 0 - 100 pg/mL [facility] Specimen Blood Performing Organization Address [facility] Phone Number [facility] DEPARTMENT OF PATHOLOGY AND [address] [place] [address] [phone] [address] Magnesium level (02/11/2020 6:55 AM CDT)Only the most recent of8 resultswithin the time period is included. Pathologist Sig nature Magnesium 1.8 1.6 - 2.6 mg/dL [facility] L Specimen Blood Performing Organization Address [facility] Phone Number [facility] DEPARTMENT OF PATHOLOGY AND [address] [place] [address] [address] Hepatic function panel (02/11/2020 6:55 AM CDT)Only the most recent of2 results within the time period is included. Albumin 3.2 (L) 3.5 - 5.0 [facility] g/dL [facility] Total bilirubin 0.4 0.0 - 1.2 [facility] mg/dL [facility] Bilirubin direct <0.2 0.0 - 0.3 [facility] mg/dL HOSPITAL Alkaline phosphatase 88 40 - 129 U/L [facility] Protein 7.6 6.3 - 8.3 [facility] Comment: g/dL HOSPITAL - [place] 4.6-7.0 g/dL 1 week 4.4-7.6 g/dL 7 months-1year 5.1-7.3 g/dL 1-2 years 5.6-7.5 g/dL >3 years 6.0-8.0 g/dL 18-150 6.3-8.3 g/dL ALT 19 5 - 50 U/L [facility] AST 17 10 - 50 U/L [facility] Specimen Blood Performing Organization Address City/[facility]/Zipcode Phone Number [facility] DEPARTMENT OF PATHOLOGY AND [address] [place], [place] [phone] [facility] [address] [place] [phone] Lipid panel (02/11/2020 6:55 AM CDT) Cholesterol 141 <200 mg/dL [facility] Triglycerides 63 <150 mg/dL [facility] HDL cholesterol 64 >40 mg/dL [facility] LDL cholesterol 70Comment: Result <100 mg/dL JENNERS obtained by direct RESTORATIONISM LDL measurement [facility] Lipid panel [facility] interpretation Comment: RESTORATIONISM Total Cholesterol (mg/dL) HOSPIT AL <200 Desirable 200-239 Borderline-high >=240 High Triglycerides (mg/dL) <150 Normal 150-199 Borderline-high 200-499 High >=500 Very high HDL Cholesterol (mg/dL) <40 Low (male) <40 Low (female) LDL Cholesterol (mg/dL) <100 Optimal 100-129 Near or above optimal 130-159 Borderline-high 160-189 High >=190 Very high Risk Catergories that modify LDL goals. Risk Catergories LDL goal (mg/d L) CHD and CHD risk equivalent <100 (10-year risk >20%) Multiple (2+) risk factors <130 (10-year risk =<20%) 0-1 risk factors <160 (<10-year risk) Defining levels of lipids in metabolic syndrome Triglycerides >=150 mg/dL HDL Cholesterol Men <40 mg /dL Women <40 mg/ dL Non-HDL cholesterol is a second target for therapy in persons with high triglycerides (>=200 mg/dL) Specimen Blood Performing Organization Address City/State/Zipcode Phone Number [facility] DEPARTMENT OF PATHOLOGY AND [address] [place], [place] [phone] [facility] [address] [place] [address] Basic metabolic panel (02/11/2020 6:55 AM CDT)Only the most recent of5 results within the time period is included. Pathologist Sig nature Sodium 141 135 - 148 mEq/L [facility] Potassium 3.9 3.5 - 5.0 mEq/L [facility] Chloride 96 (L) 98 - 112 mEq/L [facility] CO2 32 (H) 24 - 31 mEq/L [facility] Anion gap 13@ANIO 7 - 15 mEq/L [facility] BUN 25 (H) 6 - 20 mg/dL [facility] Creatinine 1.77 (H) 0.70 - 1.20 mg/dL [facility] Glucose 86 65 - 99 mg/dL [facility] Calcium 9.1 8.3 - 10.2 mg/dL [facility] Specimen Blood Performing Organization Address City/[facility] Cent[facility]ode Phone Number [facility] DEPARTMENT OF PATHOLOGY AND [address] [place] [phone] POC glucose (01/02/2020 12:32 PM CDT)Only the most recent of13 resultswithin the time period is included. Pathologist Sig nature POC glucose 105 (H) 65 - 99 mg/dL [facility] Comment: HOSPITAL Cup Trimming Machine Operator Name: Jakub Brush Device ID: [id number] Chartable: TM Notified RN Specimen Blood Performing Organization Address City/[facility] Centercode Phone Number [facility] DEPARTMENT OF PATHOLOGY AND [address] [place] [phone] Lactic acid level (01/02/2020 9:50 AM CDT)Only the most recent of3 results within the time period is included. Pathologist Sig nature Lactic acid 1.8 0.5 - 2.2 mmol/L [facility] Specimen Blood Performing Organization Address City/[facility]/Zipcode Phone Number [facility] DEPARTMENT OF PATHOLOGY AND [address] [place] [phone] FK506 Tacrolimus level, trough (01/02/2020 4:05 AM CDT)Only the most recent of3 resultswithin the time period is included. FK506 Tacrolimus 7.0 ng/mL JENNERS level, trough Comment: [employer] Therapeutic range 5-20 ng/mL for 12 hour trough. The [facility] varies depending on the organ transplanted, time after transplantation and co-administered immunosuppressant therapies. Please use clinical judgment to interpret test result. Test performed using [employer] [facility] Clinical Nurse Specialist chemiluminescent microparticle immunoassay for Tacrolimus on the [employer] ECT i System. Specimen Blood Performing Organization Address [facility]/Zipcode Phone Number [facility] DEPARTMENT OF PATHOLOGY AND [address] [place], [place] [phone] GENOMIC MEDICINE [address] [address] XR Chest 1 Vw Portable (01/01/2020 12:06 PM CDT) Specimen Narrative Performed At Examination: XR CHEST 1 VW PORTABLE [facility] Clinical history: "pna" Comparison: 03/04/2019 IMPRESSION: Mild bilateral lower lung atelectasis or infiltration is seen. No pneumothoraces are identified. The cardiomediastinal silhouette is unch anged. The bones of the chest are unchanged. [id number] Procedure Note Interface, Radiology Results Incoming - 01/01/2020 12:25 PM CDT Examination: XR CHEST 1 VW PORTABLE Clinical history: "pna" Comparison: 03/04/2019 IMPRESSION: Mild bilateral lower lung atelectasis or infiltration is seen. No pneumothoraces are identified. The cardiomediastinal silhouette is unch anged. The bones of the chest are unchanged. [id number] Performing Organization Address City/[facility]/Zipcode Phone Number [facility] [address] [place] [address] Transthoracic Echocardiogram Limited or Follow Up (w Contrast if needed) (12/31/2019 9:00 AM CDT) Specimen Narrative Performed At [facility] Echo cardiography Report [address] [facility], [facility] [address], [place] [address] Pat.Name: JEROME NAIR Pat.ID: [id number] .Date: 12/31/2019 Refer.MD: MITCHELL GONCALVES MD Exam Time: 8:42:00 AM Study Type:Shirley palomo Echo Height: 64.17in Weight: 237.6lb BSA: 2.11 m2 Ag e: 1960,59Y Sex: MALE BP: 130/58 HR: 80 bpm Sonogr phr: CHASE Grimes Pat. Stat.:Inpatient Room: [facility] Study Status:Final Echo Event ID:[id number] Order ID: [id number] Reason for Study:OHT History / Clinical:OHT,KIDNEY TRANSPLANT Procedures: Portable, 2D Echo,Colorflow Doppler Limited Race: B SUMMARY: Limited cardiac transplant study. Normal biventricular systolic function. FINDINGS: LV: LV size is normal. LV EF is normal. Overall wall motion is normal. Septal motion is paradoxical secondary to cardiac surgery. Estimated EF i s 60-64%. RV: RV size is normal. RV systo lic function is normal. LA: LA volume is enlarged. RA: RA size is normal. AO: Aortic root diameter is nor mal. KARTHIK: No pericardial effusion. AV: Tri cuspid aortic valve. MV: No structural MV abnormalit ies noted. PV: No structural PV abnormalit ies noted. TV: No structural TV abnormalit ies noted. Jackson: LV filling pressure is henrik l. Other: Insufficient TR jet to estim ate PA systolic pressure. MEASUREMENTS: 2D Parasternal Long [place] Ao An 2.3 cm LVPWd 1.1 cm Ao Rtd 2.7 cm Index 1.3 cm/m2 LA Ds 3.2 cm IVSd 1 cm RWT 0.69 LVIDd 3.2 cm Index 1.5 cm/m2 LV Mass 97 g (122-1 74) LVIDs 2.1 cm LVM In dex 46 g/m LV%fs 34 % LVOT 1.9 cm LVOT LVOT Area 2.8 cm Signed 12/31/2019 02:34 PM Clayton Conrad M.D. Procedure Note Interface, Radiology Results In - 2019 2:35 PM CDT Echocardiography Report [address] [place] [address] Pat.Name: JEROME NAIR Pat.I D: [id number] .Date: 12/31/2019 Refer .MD: MITCHELL GONCALVES MD Exam Time: 8:42:00 AM Study Type:Routine Echo Height: 64.17in Weigh t: 237.6lb BSA: 2.11 m2 Age: 2 1960,59Y Sex: MALE BP: 130/58 HR: 80 bpm Sonog rphr: CHASE Grimes Pat. Stat.:Inpatient Room: [facility] Study Status:Final Echo Event ID:[id number] Order ID: [id number] Reason for Study:OHT History / Clinical:OHT,KIDNEY TRANSPLANT Procedures: Portable, 2D Echo,Colorflow Doppler Limited Race: B SUMMARY: Limited cardiac transplant study. Normal biventricular systolic function. FINDINGS: LV: LV size is normal. LV EF is no rmal. Overall wall motion is normal. Septal motion is para doxical secondary to cardiac surgery. Estimated EF is 60-6 4%. RV: RV size is normal. RV systolic function is normal. LA: LA volume is enlarged. RA: RA size is normal. AO: Aortic root diameter is normal . KARTHIK: No pericardial effusion. AV: Tri cuspid aortic valve. MV: No structural MV abnormalities noted. PV: No structural PV abnormalities noted. TV: No structural TV abnormalities noted. Jackson: LV filling pressure is normal. Other: Insufficient TR jet to estimat e PA systolic pressure. MEASUREMENTS: 2D Parasternal Long [place] Ao An 2.3 cm LVPW d 1.1 cm Ao Rtd 2.7 cm Inde x 1.3 cm/m2 LA Ds 3.2 cm IVSd 1 cm RWT 0.69 LVIDd 3.2 cm Inde x 1.5 cm/m2 LV Mass 97 g (122-174) LVIDs 2.1 cm LVM Index 46 g/m LV%fs 34 % LVOT 1.9 cm LVOT LVOT Area 2.8 cm Signed 12/31/2019 02:34 PM Clayton Conrad M.D. Performing Organization Address [facility] Centercode Phone Number [facility]UP[facility] [address] [place] [address] Immunoglobulin G (12/31/2019 5:45 AM CDT)Only the most recent of2 resultswithin the time period is included. Pathologist Sig nature IgG 1,385 700 - 1,600 mg/dL [facility] Specimen Blood Performing Organization Address [facility] Centercode Phone Number [facility] DEPARTMENT OF PATHOLOGY AND [address] [place], [place] [phone] GENOMIC MEDICINE [address] [address] Lactic acid level, SEPSIS - Now and repeat 2x every 3 hours (12/30/2019 9:00 PM CDT)Only the most recent of2 resultswithin the time period is included. Pathologist Sig nature Lactic acid 3.9 (HH) 0.5 - 2.2 mmol/L [facility] Specimen Blood Narrative Performed At ____lacsp to and read back by marc [facility] DEPARTMENT OF PATHOLOGY AND [facility] sondenitin/amanda(name/location) MEDICINE at 12/30/2019 23:34 (date/time) by dionicio_. Performing Organization Address City/[facility]/Zipcode Phone Number [facility] DEPARTMENT OF PATHOLOGY AND [address] [place] [address] [phone] [address] Glucose level (12/30/2019 9:00 PM CDT) Pathologist Sig pending sale to [facility] Glucose 337 (H) 65 - 99 mg/dL [facility] Specimen Performing Organization Address City/[facility]/Zipcode Phone Number [facility] DEPARTMENT OF PATHOLOGY AND [address] [place] [phone] [facility] [address] [place] [address] ECG 12 lead (12/30/2019 8:04 PM CDT)Only the most recent of2 resultswithin the time period is included. Pathologist Sig nature Ventricular rate 87 [facility] Atrial rate 87 [facility] IN interval 160 [facility] QRSD interval 84 [facility] QT interval 376 [facility] QTC interval 452 [facility] P axis 1 10 [facility] QRS axis 1 -4 [facility] T wave axis 176 [facility] EKG impression Normal sinus rhythm-Low [facility] voltage QRS-Cannot rule out Inferior infarct , age undetermined-Cannot rule out Anterior infarct , age undetermined-Abnormal ECG- Specimen Narrative Performed At This result has an attachment that is no t available. Performing Organization Address City/[facility]/Zipcode Phone Number [facility] MUSE [address] [place] [address] COVID-19 qualitative PCR (12/30/2019 10:10 AM CDT) COVID-19 qualitative Not-Detected Not-Detected [facility] PCR result HOSPITAL COVID-19 qualitative See link below [facility] PCR for PDF Lab HOSPITAL ReportComment: Specimen Performing Organization Address City/State/Zipcode Phone Number [facility] DEPARTMENT OF PATHOLOGY AND [address] [place], [place] [address] [address] [facility] [address] [place] [address] [facility] CT Chest Wo Contrast (12/30/2019 9:01 AM CDT) Specimen Narrative Performed At EXAMINATION: RADIANT CT CHEST WO CONTRAST CLINICAL HISTORY: Cough persistent, Pneumonia unresolved or complica [place], Shortness of breath TECHNIQUE: Multiple axial images of the chest were obtained witho ut intravenous contrast. The lack of intravenous contrast reduces the sensitivity of detecting solid organ disease and evaluating vasculatu re. Sagittal and coronal computerized reformatted images were also obtained. CT imaging was performed with iterative reconstruction techniques and/or automated exposure control to reduce rad iation dose. COMPARISON: None. FINDINGS: 1.There are very subtle peripheral groundglass opaciti es, for example right lower lobe image 77, right middle lobe image 69, equivocal left upper lobe image 49. 2.There is mild airways thickening in the upper and lo wer lobes (images 39, 72 for example). 3.There is no consolidation or interstit ial thickening. 4.There is no pleural or pericardial eff usion. 5.No thoracic lymphadenopathy is seen. 6.The heart size is normal. Status post heart transplantation. 7.There is no acute or suspicious upper abdominal imaging finding. 8.No significant skeletal abnormality is seen. IMPRESSION: Mild airways thickening could suggest mi ld bronchitis. Very subtle bilateral groundglass opacities, questiona ble for very early pneumonia. Short interval chest CT follo w-up recommended. [facility]-[id number] Procedure Note Interface, Radiology Results Incoming - 12/30/2019 9:17 AM CDT EXAMINATION: CT CHEST WO CONTRAST CLINICAL HISTORY: Cough persistent, Pneumonia unresolved or complicated, Shortness of breath TECHNIQUE: Multiple axial images of the chest were obtained without intravenous contrast. The lack of intravenous contrast reduces the sensitivity of detecting solid organ disease and evaluating vasculature. Sagittal and coronal computerized reformatted images were also obtained. CT imaging was performed with iterative reconstruction techniques and/or automated exposure control to reduce radiation dose. COMPARISON: None. FINDINGS: 1.There are very subtle peripheral groun dglass opacities, for example right lower lobe image 77, right middle lobe image 69, equivocal left upper lobe image 49. 2.There is mild airways thickening in th e upper and lower lobes (images 39, 72 for example). 3.There is no consolidation or interstit ial thickening. 4.There is no pleural or pericardial eff usion. 5.No thoracic lymphadenopathy is seen. 6.The heart size is normal. Status post heart transplantation. 7.There is no acute or suspicious upper abdominal imaging finding. 8.No significant skeletal abnormality is seen. IMPRESSION: Mild airways thickening could suggest mi ld bronchitis. Very subtle bilateral groundglass opacit ies, questionable for very early pneumonia. Short interval chest CT follow-up recommended. [facility]-[id number] Performing Organization Address City/[facility] Centercode Phone Number [address] [address] Blood culture, aerobic & anaerobic (12/30/2019 8:35 AM CDT)Only the most recent of2 resultswithin the time period is included. [facility] Blood culture No growth after 5 days of incubation. [facility] ALEJANDROHCA [facility] isolate Comment: HOSPITAL Specimen Information Specimen Source: Blood Specimen Site: Antecubital, right Specimen Blood - Antecubital, right Performing Organization Address City/[facility] Centercode Phone Number [facility] DEPARTMENT OF PATHOLOGY AND [address] [place] [address] [phone] [address] Partial thromboplastin time, activated (12/30/2019 8:35 AM CDT) [facility] PTT 28.3 23.0 - 36.0 [facility] Comment: [facility] PTT therapeutic range for unfractionated heparin is 61.0-112.0 seconds which corresponds to Anti-Xa 0.3-0.7 U/ml. Specimen Blood Performing Organization Address City/[facility]/Zipcode Phone Number [facility] DEPARTMENT OF PATHOLOGY AND [address] [place] [address] [phone] [address] Prothrombin time with INR (12/30/2019 8:35 AM CDT) [facility] Prothrombin time 13.7 11.5 - 14.5 [facility] INR 1.0 [facility] Comment: [facility] The International Normalized Ratio (INR) is a therapeu [facility]OSPITAL monitoring tool for patients who are stable on oral anticoagulant therapy. An INR of 2.0-3.0 is suggested for deep vein thrombosis/pulmonary embolism. Specimen Blood Performing Organization Address City/[facility] Centercode Phone Number [facility] DEPARTMENT OF PATHOLOGY AND [address] [place] [phone] [facility]INE [address] [address] Comprehensive metabolic panel (12/30/2019 8:35 AM CDT)Only the most recent of4 resultswithin the time period is included. Sodium 140 135 - 148 [facility] mEq/L [facility] Potassium 3.9 3.5 - 5.0 [facility] mEq/L [facility] Chloride 98 98 - 112 [facility] mEq/L [facility] CO2 28 24 - 31 mEq/L [facility] Anion gap 14@ANIO 7 - 15 mEq/L [facility] BUN 24 (H) 6 - 20 mg/dL [facility] Creatinine 2.04 (H) 0.70 - 1.20 [facility] mg/dL [facility] Glucose 161 (H) 65 - 99 mg/dL [facility] Calcium 9.2 8.3 - 10.2 [facility] mg/dL [facility] Protein 7.3 6.3 - 8.3 [facility] Comment: g/dL [facility] - [place] 4.6-7.0 g/dL 1 week 4.4-7.6 g/dL 7 months-1year 5.1-7.3 g/dL 1-2 years 5.6-7.5 g/dL >3 years 6.0-8.0 g/dL 18-150 6.3-8.3 g/dL Albumin 3.5 3.5 - 5.0 [facility] g/dL [facility] A/G ratio 0.9 0.7 - 3.[address] [facility] Alkaline phosphatase 79 40 - 129 U/L [facility] AST 14 10 - 50 U/L [facility] ALT 13 5 - 50 U/L [facility] Total bilirubin 0.8 0.0 - 1.2 [facility] mg/dL HOSPITAL Specimen Blood Performing Organization Address City/[facility]/Zipcode Phone Number [facility] DEPARTMENT OF PATHOLOGY AND [address] [place] [address] [phone] [address] Respiratory pathogen panel (12/30/2019 7:58 AM CDT) Respiratory Positive for Human Metapneumovirus [place] [facility] pathogen panel [facility] Negative for all other pathogens tested: HOSPITAL Negative for Adenovirus Negative for Coronavirus HKU1 Negative for Coronavirus NL63 Negative for Coronavirus 229E Negative for Coronavirus OC43 Negative for Rhinovirus/Enterovirus Negative for Influenza A Negative for Influenza A/H1 Negative for Influenza A/H3 Negative for Influenza A/H1-2009 Negative for Influenza B Negative for Parainfluenza Virus 1 Negative for Parainfluenza Virus 2 Negative for Parainfluenza Virus 3 Negative for Parainfluenza Virus 4 Negative for Respiratory Syncytial Virus Negative for Bordetella pertussis Negative for Chlamydophila pneumoniae Negative for Mycoplasma pneumoniae This real-time PCR assay detects the presence of nucle ic acids (RNA or DNA) for the respiratory pathogens liste d. A result of "Not-detected" does not exclude the possib ility of the presence of one or more pathogens at concentrat ions less than the detectable limits of the assa (A) Comment: Specimen Information Specimen Source: Nares Specimen Site: Not specified Specimen Nares - Not specified Performing Organization Address City/State/Zipcode Phone Number [facility] DEPARTMENT OF PATHOLOGY AND [address] [place] [address] [phone] [address] Influenza antigen test, reflex negative to RPP (12/30/2019 7:58 AM CDT) Pathologist [facility] Influenza antigen Negative for Influenza A/B antigen. [facility] Comment: HOSPITAL Specimen Information Specimen Source: Nares Specimen Site: Not specified Specimen Nares - Not specified Performing Organization Address City/State/Zipcode Phone Number [facility] DEPARTMENT OF PATHOLOGY AND [address] [place] [address] [phone] [address] CRITICAL CARE (12/30/2019 7:53 AM CDT) Narrative Performed At Michelle Ortiz MD 12/31/2019 6:42 AM Critical Care Performed by: Michelle Ortiz MD Authorized by: Michelle Ortiz MD Critical care provider statement: Critical care time (minutes): 35 Critical care was necessary to treat or prevent imminent or life-threatening deterioration of the fo llowing conditions: Sepsis Critical care was time spent personal ly by me on the following activities: Ordering and performing tr eatments and interventions, ordering and review of laboratory studie s, ordering and review of radiographic studies, pulse oximetry, re -evaluation of patient's condition, review of old charts, blood draw for specim ens, development of treatment plan with patient or surrogate , discussions with consultants, discussions with primary provider, evalu ation of patient's response to treatment and examination of patient Group A strep, rapid antigen (12/30/2019 7:28 AM CDT) [facility] Group A strep, Negative for Group A Streptococcus antigen. [facility] rapid antigen Comment: HOSPITAL result Specimen Information Specimen Source: Throat Specimen Site: Not otherwise specified Specimen Throat - Not otherwise specified Performing Organization Address [facility] Phone Number [facility] DEPARTMENT OF PATHOLOGY AND [address] [place] [address] [place] [address] Strep screen culture (12/30/2019 7:28 AM CDT) [facility] Strep screen No beta hemolytic Streptococci isolated [facility] culture isolate Comment: HOSPITAL Specimen Information Specimen Source: Throat Specimen Site: Not otherwise specified Specimen Throat - Not otherwise specified Performing Organization Address City/[facility] Phone Number [facility] DEPARTMENT OF PATHOLOGY AND [address] [place] [address] [place] [address] Creatinine level, urine, random (10/22/2019 10:00 AM TELEVISION SPECIALIST)Only the most recent of 4 resultswithin the time period is included. Pathologist [facility] nature Creatinine, urine, 109 mg/dL [facility] Specimen Urine Performing Organization Address City/[facility] Phone Number [facility] DEPARTMENT OF PATHOLOGY AND [address] [place] [address] [phone] [address] Olga-Hyde virus antibody test (10/22/2019 9:43 AM TELEVISION SPECIALIST) EBV Ab to viral capsid Positive (A) Negative [facility] Ag, IgG HOSPITAL EBV Ab to viral capsid Negative Negative [facility] Ag, IgM HOSPITAL EBV Ab to nuclear Ag, Positive (A) Negative [facility] IgG HOSPITAL EBV Ab to early (D) Negative Negative [facility] Ag, IgG HOSPITAL Olga-Hyde virus SEE [facility] antibody COMMENTComment: HOSPITAL interpretation Infection Status: Results may suggest past EBV infection. Specimen Serum Performing Organization Address City/[facility] Centercode Phone Number [facility] DEPARTMENT OF PATHOLOGY AND [address] [place] [address] Cytomegalovirus by PCR (10/22/2019 9:43 AM TELEVISION SPECIALIST) Pathologist [facility] Cytomegalovirus by PCR Not-Detected Not-Detected [facility] IU/mL HOSPITAL Cytomegalovirus by PCR See link [facility] below for PDF HOSPITAL Lab ReportComment : Specimen Performing Organization Address City/[facility] Centercode Phone Number [facility] DEPARTMENT OF PATHOLOGY AND [address] [place] [address] BK virus by PCR (10/22/2019 9:43 AM TELEVISION SPECIALIST) Pathologist Sig nature BK virus PCR Not-Detected Not-Detected [facility] copies/mL HOSPITAL BK virus PCR See link below [facility] for PDF Lab HOSPITAL ReportComment: Specimen Performing Organization Address City/[facility] Centercode Phone Number [facility] DEPARTMENT OF PATHOLOGY AND [address] [place] [address] Hemoglobin A1c (10/22/2019 9:43 AM TELEVISION SPECIALIST) Hemoglobin A1C 8.8 (H) 4.0 - 5.6 % [facility] Comment: HOSPITAL HbA1c cutoffs for diagnosing diabetes: 4.0% - 5.6% = normal 5.7% - 6.4% = increased risk for diabetes (prediabetes )9 >=6.5% = diabetes9 Goals for glycemic control (ADA 2016) < 7.0% Target for non adults with diabetes. More or less stringent targets may be appropriate for individual patients. <7.5% Target for Children and adolescents with type 1 diabetes. Specimen Blood Performing Organization Address City/[facility]ercode Phone Number [facility] DEPARTMENT OF PATHOLOGY AND [address] [place] [address] [phone] [address] Urinalysis screen and microscopy, with reflex to culture (08/14/2019 8:29 AM CDT)Only the most recent of3 resultswithin the time period is included. Specimen site Clean catch [facility] Color, UA Straw [facility] Appearance, UA Clear [facility] Specific gravity, UA 1.009 1.001 - 1.[address] [facility] pH, UA 7.0 5.0 - 8.[address] [facility] Protein, UA Negative Negative [facility] Glucose, UA Negative Negative [facility] Ketones, UA Negative Negative [facility] Bilirubin, UA Negative Negative [facility] Blood, UA Small (A) Negative [facility] Nitrite, UA Negative Negative [facility] Urobilinogen, UA <2.0 <2.[address] [facility] Leukocyte esterase, Negative Negative [facility] Epithelial cells, UA <1 /HPF [facility] WBC, UA None seen 0 - 1 /HPF [facility] RBC, UA 13 (H) 0 - 5 /HPF [facility] Bacteria, UA None seen None seen [facility] Yeast, UA None seen [facility] Yeast with None seen [facility] pseudohyphae, HOSPITAL Sperm, UA Few (A) [facility] Amorphous crystals Few [facility] Specimen Urine Performing Organization Address City/[facility] Centercode Phone Number [facility] DEPARTMENT OF PATHOLOGY AND [address] [place] [address] [phone] [address] Protein, urine, random (08/14/2019 8:29 AM CDT)Only the most recent of3 results within the time period is included. Pathologist Sig nature Protein, urine random <4 mg/dL [facility] Specimen Urine Performing Organization Address City/[facility] Centercode Phone Number [facility] DEPARTMENT OF PATHOLOGY AND [address] [place] [address] [phone] [address] Urine culture (08/14/2019 8:29 AM CDT)Only the most recent of3 resultswithin the time period is included. Pathologist Sig pending sale to [facility] Urine culture SEE COMMENTComment: [facility] Bacteriuria screen HOSPITAL negative. Specimen Performing Organization Address City/[facility] Centercode Phone Number [facility] DEPARTMENT OF PATHOLOGY AND [address] [place] [phone] Uric acid level (08/14/2019 8:29 AM CDT)Only the most recent of3 resultswithin the time period is included. Pathologist Sig nature Uric acid 6.6 3.4 - 7.0 mg/dL [facility] L Specimen Plasma specimen Performing Organization Address [facility] Centercode Phone Number [facility] DEPARTMENT OF PATHOLOGY AND [address] [place] [address] [phone] [address] LDH (08/14/2019 8:29 AM CDT)Only the most recent of3 resultswithin the time period is included. Pathologist Sig nature LDH 207 87 - 225 U/L [facility] Specimen Plasma specimen Performing Organization Address City/[facility] Centercode Phone Number [facility] DEPARTMENT OF PATHOLOGY AND [address] [place] [phone] [place] [phone] after 03/09/2019 Advance Directives For more information, please contact: [phone] Type Date Recorded Patient Pelt Shearer Explanati on Advance Directives, Living Will 02/09/2017 6:41 AM and Medical Power of Floor Finisher Helper Code Status Date Activated Date Inactivated Comments Full Code 12/30/2019 10:36 AM 01/02/2020 6:34 PM Code Status decision reached by: Patient
--- OUTSIDE RECORDS SUMMARY | 2020-03-09 21:59 | XMS REPORT ---
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 [address] 2020-02-17 2020-02-17 Outpatient ANITA, [facility] [id number] [place] 00:00:00 00:00:00 JHONNY [address] 2020-02-17 2020-02-17 Outpatient MELENDREZ, [facility] [id number] [place] 00:00:00 00:00:00 TAQUERIA [address] 2020-02-11 2020-02-11 Outpatient SOLITARIO [facility] [id number] [place] 00:00:00 00:00:00 GHASSAN [address] 2019-12-30 2020-01-02 Inpatient SACHA, [facility] [id number] [place] 00:00:00 00:00:00 ASH [address] Results Test Description Test Time Test Results Result Source Comments Comments Transthoracic 2020-02-14 Interface, Radiology [facility] Echocardiogram 9 Results In - Methodis t Complete, (w 11:07:00 03/03/2020 11:07 AM Contrast, Strain CDT and 3D if needed) Echocardiography Report [address] [address], [place] [address] [facility].Name: LELAND NAIR.ID: [id number] .Date: 03/02/2020 Refer.MD: GHASSAN JEREZ MD Exam Time: 9:50:00 AM Study Type:Routine Echo Height: 64.17in Weight: 237lb BSA: 2.11 m2 Age: 2 1960,59Y Sex: MALE BP: 96/49 HR: 80 bpm Sonogrphr: Shania Mendez RDCS Pat. Stat.:Outpatient Room: OPC 26 Study Status:Final Echo Event ID:[id number] Order ID: [id number] Reason for Study:Cardiac transplant, monitoring for rejectionHistory / Clinical:OHT,KIDNEY TRANSPLANTProcedures : 2D Echo, Colorflow Doppler, Intravenous Definity ContrastRace: B SUM LENA: -Estimated EF is 65-69%RV systolic function is normal.Normal diastolic function and LV filling pressures.Unable to assess PA systolic pressure despite use of contrast.No intracardiac flow abnormalities detected by Doppler. ----FINDINGS:------- ---------LV: LV size is normal. LV EF is normal. Overall wall motion is normal. Estimated EF is 65-69%RV: RV size is normal. RV systolic function is normal.LA: LA volume is enlarged.RA: RA size is normal.AO: Aortic root diameter is normal.KARTHIK: No pericardial effusion.AV: No structural AV abnormalities noted.MV: No structural MV abnormalities noted.PV: Pulmonic valve not well seen.TV: No structural TV abnormalities noted.Jackson: Normal diastolic function and LV filling pressures.Other: Unable to assess PA systolic pressure despite use of contrast. No intracardiac flow abnormalities detected by Doppler. CRISTIAN UREMENTS: ----- 2DParasternal Long [place] Ao An 2.1 cm LVPWd 0.7 cm Ao Rtd 2.6 cm Index 1.2 cm/m2 LA Ds 3.7 cm IVSd 0.61 cm RWT 0.33 LVIDd 4.2 cm Index 2 cm/m2 LV Mass 77 g (122-174)* LVIDs 2.4 cm LVM Index 37 g/m2 LV%fs 42 % LVOT 2 cm LVOT LVOT Area 3 cm2 DOPPLERLVOT Stroke Vol LVOT TVI 22 cm HR 69 bpm LVOT LVOT SV 66 ml LVOT CO 4.6 l/min SVi 31 ml/m2 LVOT CI 2.2 l/m/m2 Signed 03/03/2020 11:07 Craig Conrad M.D. Blood culture, aerobic & anaerobic 2020-01-04 12:33:04 Test Item Value Reference Range Interpretation Comme nts Blood culture isolate No growth after 5 days of Specimen InformationSpecimen (test code = 600-7) incubation. Source: BloodSpecimen Site: Antecubital, ri t [place] [facility] [id number] 12:33:40 Test Item Value Reference Range Interpretation Comments POC glucose (test code 105 mg/dL 65-99 H Opera tor Name: Jakub = [id number]) Cristiana ID: [id number] able: [facility] Notified help desk representative Interpretation Abnormal (test code = 13164-6) [place] MethodistLactic acid [id number] 10:43:59 Test Item Value Reference Range Interpretation Comments Lactic acid (test code = 96301-0) 1.8 mmol/L 0.5-2.2 [place] GwcsycrrqOE015 Tacrolimus level, [id number] 08:45:03 Test Item Value Reference Range Interpretation Comments FK506 Tacrolimus 7.0 ng/mL Therapeutic range 5-20 level, trough (test ng/mL fo r 12 hour trough. code = 5974) The range varie s depending on th e organ transplanted, t brennon after transplantation and co-administered immunosuppressa nt therapies. Plea se use clinical judgme nt to interpret test result.Test per formed using [employer] chemiluminescen t microparticle i mmunoassay for Tacrolimus on the DRAW TENDER i Sys tem. [place] MethodistXR Chest 1 Vw [id number] 12:22:46Hm Interface, Radiology Results Incoming 01/01/2020 12:25 PM CDTExamination: XR CHEST 1 VW PORTABLEClinical history: "pna" Comparison: 03/04/2019 IMPRESSION: Mild bilateral lower lung atelectasis or infiltration is seen. No pneumothoraces are identified.The cardiomediastinalsilhouette is unchanged. The bones of the chest are unchanged. [id number] MethodistStrep screen culture 2020-01-01 10:50:11 Test Item Value Reference Range Interpretation Comments Strep screen No beta hemolytic Specimen culture Streptococci InformationSpec imen isolate (test isolated Source: Throat Specimen code = 2246) Site: Not other chaidez specified [place] MethodistTransthoracic Echocardiogram Limited or Follow Up (w Contrast if needed)2019-12-31 14:34:00Interface, Radiology Results In 12/31/2019 2:35 PM CDT Echocardiography Report [address] [place] [address] Pat.Name: LELAND NAIR.ID: [id number].Date: 12/31/2019 Refer.MD: ASH GONCALVES MD Exam Time: 8:42:00 AM Study Type:Routine Echo Height: 64.17in Weight: 237.6lb BSA: 2.11 m2 Age: 2 1960,59Y Sex: MALE BP: 130/58 HR: 80 bpm Sonogrphr: Jun Callaway [facility] Pat. Stat.:Inpatient Room: [facility] Study Status:Final Echo Event ID:[id number] Order ID: [id number] Reason forStudy:OHT History / Clinical:OHT,KIDNEY TRANSPLANTProcedures: Portable, 2D Echo,Colorflow Doppler LimitedRace: B SUMMARY:---- Limited cardiac transplant study.Normal biventricular systolic functi on. FINDINGS: ----LV: LV size is normal. LV EF is normal. Overall wall motion is normal. Septal motion is paradoxical secondary to cardiac surgery. Estimated EF is 60-64%.RV: RV size is normal. RV systolic function is normal.LA: LA volume is enlarged.RA: RA size is normal.AO: Aortic root diameter is normal.KARTHIK: No pericardial effusion.AV: Tri cuspid aortic valve.MV: Nostructural MV abnormalities noted.PV: No structural PV abnormalities noted.TV: No structural TV abnormalities noted.Jackson: LV filling pressure is normal.Other: Insufficient TR jet to e stimate PA systolic pressure. MEASUREMENTS: 2DParasternal Long [place] Ao An 2.3 cm LVPWd 1.1 cm Ao Rtd 2.7 cm Index 1.3 cm/m2LA Ds 3.2 cm IVSd 1 cm RWT 0.69 LVIDd 3.2 cm Index 1.5 cm/m2 LV Mass 97 g (122-174) LVIDs 2.1 cm LVM Index 46 g/m2 LV%fs 34 % LVOT 1.9 cm LVOT LVOT Area 2.8 cm2 Signed 12/31/2019 02:34 PMClayton Conrad M.D.[place] MethodistImmunoglobulin [id number] 06:46:10 Test Item Value Reference Range Interpretation Comments IgG (test code = 2465-3) 1385 mg/dL 700-1600 [place] MethodistGlucose [id number] 23:35:09 Test Item Value Reference Range Interpretation Comments Glucose (test code = 2345-7) 337 mg/dL 65-99 H Lab Interpretation (test code = Abnormal 31836-0) [place] MethodistLactic acid level, SEPSIS - Now and repeat 2x every 3 hours 2019-12-30 23:34:34 Test Item Value Reference Range Interpretation Comments Lactic acid (test code = 3.9 mmol/L 0.5-2.2 88911-9) MADY (test code = MADY) ____lacsp to and read back by marc archer/amanda(name/ location)at 12/30/2019 23:34 (date/time) by dionicio_. Lab Interpretation (test Abnormal code = 91109-0) [place] MethodistECG 12 [id number] 20:57:27 Test Item Value Reference Range Interpretation Comments Ventricular rate (test 87 code = 253) Atrial rate (test code = 87 255) WI interval (test code = 160 266) QRSD interval (test code 84 = 260) QT interval (test code = 376 264) QTC interval (test code 452 = 265) P axis 1 (test code = 10 267) QRS axis 1 (test code = -4 268) T wave axis (test code = 176 270) EKG impression (test Normal sinus code = 273) rhythm-Low voltage QRS-Cannot rule out Inferior infarct , age undetermined-Cannot rule out Anterior infarct , age undetermined-Abnormal ECG- [place] MethodistCOVID-19 qualitative [id number] 19:23:52 Test Item Value Reference Range Interpretation Comments COVID-19 qualitative Not-Detected Not-Detected PCR result (test code = 16066-0) COVID-19 qualitative See link below Case Number: PCR (test code = for PDF Lab [id number] 7070) Report [place] MethodistRespiratory pathogen [id number] 10:49:13 Test Item Value Reference Interpretation Comments Range Respiratory Positive for Human A Specimen pathogen panel Metapneumovirus------ Info rmationSpecimen (test code = Nega Source : NaresSpecimen 214) tive for all other Site: Not specified pathogens tested:Negative for AdenovirusNegative for Coronavirus EQM1Ztbfkkkh for Coronavirus TV03Ymsckpmc for Coronavirus 229ENegative for Coronavirus GL03Ithfwmmb for Rhinovirus/Enteroviru sNegative for Influenza ANegative for Influenza A/U8Oouuqxbq for Influenza A/V3Iykwdnvb for Influenza A/H1-2009Negative for Influenza BNegative for Parainfluenza Virus 1Negative for Parainfluenza Virus 2Negative for Parainfluenza Virus 3Negative for Parainfluenza Virus 4Negative for Respiratory Syncytial VirusNegative for Bordetella pertussisNegative for Chlamydophila pneumoniaeNegative for Mycoplasma pneumoniaeThis real-time PCR assay detects the presence of nucleic acids (RNA or DNA) for the respiratory pathogens listed. A result of "Not-detected" does not exclude the possibility of the presence of one or more pathogens at concentrations less than the detectable limits of the assa Lab Abnormal Interpretation (test code = 93027-2) [place] MethodistGroup A strep, rapid [id number] 09:44:35 Test Item Value Reference Interpretation Comments Range Group A Negative for Group Specimen strep, rapid A Streptococcus InformationS pecimen antigen antigen. Source: ThroatS pecimen result (test Site: Not other chaidez code = specified 3334502) [place] MethodistInfluenza antigen test, reflex negative to [id number] 09:27:38 Test Item Value Reference Range Interpretation Comments Influenza Negative for Specimen antigen (test Influenza A/B InformationSp ecimen code = 60211-1) antigen. Source: Nare sSpecimen Site: Not speci fied [place] MethodistPartial thromboplastin time, [id number] 09:18:03 Test Item Value Reference Range Interpretation Comments PTT (test code = 28.3 23.0- 36.0 [place] [address]-9) unfractionated heparin is61.0-112.0 se conds which corresponds to Anti-Xa0.3-0.7 U/ml. [place] MethodistProthrombin time with [id number] 09:17:22 Test Item Value Reference Range Interpretation Comments Prothrombin time (test 13.7 11.5- 14.5 sec code = 5902-2) INR (test code = 1.0 The Interna tional 53409-9) Normalized Rati o (INR) is a therapeutic m onitoring tool for patien ts who are stable on oral anticoagulant t herapy. An INR of 2.0-3.0 is suggested for d eep vein thrombosis/pulm onary embolism. [place] MethodistCT Chest Wo [id number] 09:14:48Hm Interface, Radiology Results 12/30/2019 9:17 AM CDTEXAMINATION:CT CHEST WO CONTRASTCLI NICAL HISTORY:Cough persistent, Pneumonia unresolved or complicated, Shortness of breathTECHNIQUE:Multiple axial images of the chest were obtained without intravenous contrast. The lack of intravenous contrast reduces the sensitivity of detecting solid organ disease and evaluating vasculature. Sagittal and coronal computerized reformatted images were also obtained.CT imaging was performed with iterative reconstruction techniques and/or automated exposure control to reduce radiation dose. COMPARISON:None.FINDINGS:1.There are very subtle peripheral groundglass opacities, for example right lower lobe image 77, right middle lobe image 69, equivocal left upper lobe image 49.2.There is mild airways thickening in the upper and lower lobes (images 39, 72 for example).3.There is no consolidation or interstitial thickening.4.There is no pleural or pericardial effusion.5.No thoracic lymphadenopathy is seen.6.The heart size is normal. Status post heart transplantation.7.There is no acute or suspicious upper abdominal imaging finding.8.No significant skeletal abnormality is seen.IMPRESSION:Mild airways thickening could suggest mild bronchitis.Very subtle bilateral groundglass opacities, questionable for very early pneumonia. Short interval chest CT follow-up recommended.[facility]-[id number] [facility] Comprehensive metabolic [id number] 09:12:06 Test Item Value Reference Range Interpretation Comments Sodium (test code = 140 135- 148 mEq/L 2951-2) Potassium (test code = 3.9 3.5- 5.0 mEq/L 2823-3) Chloride (test code = 98 98- 112 mEq/L 2075-0) CO2 (test code = 8-9) 28 24- 31 mEq/L Anion gap (test code = 14@ANIO 7- 15 mEq/L 34883-5) BUN (test code = 3094-0) 24 mg/dL 6-20 H Creatinine (test code = 2.04 mg/dL 0.7-1.2 H 2160-0) Glucose (test code = 161 mg/dL 65-99 H 2345-7) Calcium (test code = 9.2 mg/dL 8.3-10.2 80987-2) Protein (test code = 7.3 g/dL 6.3-8.3 -[place] n 2885-2) 4.6-7.0 g/dL1 week 4.4-7 .6 g/dL7 months-1y ear 5.1-7 .3 g/dL1-2 years 5.6-7 .5 g/dL>3 years 6.0-8 .0 g/xO36-784 6.3-8 .3 g/dL Albumin (test code = 3.5 g/dL 3.5-5 1751-7) A/G ratio (test code = 0.9 0.7-3.8 1759-0) Alkaline phosphatase 79 U/L 40-129 (test code = 6768-6) AST (test code = 1920-8) 14 U/L 10-50 ALT (test code = 1742-6) 13 U/L 5-50 Total bilirubin (test 0.8 mg/dL 0-1.2 code = 1975-2) Lab Interpretation (test Abnormal code = 46604-1) [facility]2020-03-16 07:53:50Michelle Ortiz MD 12/31/2019 6:42 AMCritical CarePerformed by: Michelle Ortiz MDAuthorized by: Michelle Ortiz MD Ava Critical care provider statement: Critical care time (minutes): 35 Critical care was necessary to treat or prevent imminent or life-threatening deterioration of the following conditions: Sepsis Critical care was time spent personally by me on the following activities: Ordering and performing treatments and interventions, ordering and review of laboratory st udies, ordering and review of radiographic studies, pulse oximetry, re- evaluation of patient's condition, review of old charts, blood draw for specimens, development of treatment plan with patient or surrogate, discussions with consultants, discussions with primary provider, evaluation of patient's res ponse to treatment and examination of patientBeach MethodistProtein, urine, [id number] 10:51:34 Test Item Value Reference Range Interpretation Comments Protein, urine random (test code = <4 mg/dL 2888-6) [place] [id number] 10:14:18 Test Item Value Reference Range Interpretation Comments LDH (test code = 73124-4) 207 U/L 87-225 [place] MethodistUric acid [id number] 10:14:18 Test Item Value Reference Range Interpretation Comments Uric acid (test code = 3084-1) 6.6 mg/dL 3.4-7 [place] MethodistUrine [id number] 09:58:47 Test Item Value Reference Range Interpretation Comments Urine culture (test SEE COMMENT Bacteriu pauline screen code = 0325681) negative. [place] MethodistUrinalysis screen and microscopy, with reflex to culture 2019-08-14 09:58:45 Test Item Value Reference Range Interpretation Comments Specimen site (test code = Clean catch 9324815) Color, UA (test code = 5778-6) Straw Appearance, UA (test code = Clear 5767-9) Specific gravity, UA (test code = 1.009 1.001-1.035 5811-5) pH, UA (test code = 5803-2) 7.0 5.0-8.5 Protein, UA (test code = 33167-9) Negative Negative Glucose, UA (test code = 37766-3) Negative Negative Ketones, UA (test code = 2514-8) Negative Negative Bilirubin, UA (test code = Negative Negative 5770-3) Blood, UA (test code = 5794-3) Small Negative A Nitrite, UA (test code = 5802-4) Negative Negative Urobilinogen, UA (test code = <2.0 <2.0 14860-8) Leukocyte esterase, UA (test code Negative Negative = 5799-2) Epithelial cells, UA (test code = <1 /HPF 5787-7) WBC, UA (test code = 5821-4) None seen 0- 1 /HPF RBC, UA (test code = 62475-7) 13 0- 5 /HPF H Bacteria, UA (test code = None seen None seen 88349-4) Yeast, UA (test code = 33809-5) None seen Yeast with pseudohyphae, UA (test None seen code = 43394-4) Sperm, UA (test code = 8248-7) Few A Amorphous crystals (test code = Few 03350-4) Lab Interpretation (test code = Abnormal 64976-1) Deng Garvey
[2020-03-09] MEDS ORDERED: ONDANSETRON 4 MG (ODT) TAB ONE (22:32)
[2020-03-09] MEDS ORDERED: AZITHROMYCIN 500 MG INJ IVPB ONE (23:18)
[2020-03-09] MEDS ORDERED: NA CHLORIDE 0.9% 250 ML ONE (23:18)
[2020-03-09] MEDS ORDERED: CEFTRIAXONE/SWI 1gm 1 GM/10 ML SYR ONE (23:18)
[2020-03-09] MEDS ORDERED: ACETAMINOPHEN 325 MG TABLET ONE (23:18)
[2020-03-09 23:43] LABS: Absolute Lymphocytes (CBC) 0.8 K/uL (0.7-4.9); Basophils % 0.7 % (0-1.3); Hematocrit 37.9 % (39.6-49.0); Lymphocytes % 15.4 % (15.3-44.8); MPV 10.4 fL (7.6-11.3); RBC Red Blood Cell Count 4.25 M/uL (4.33-5.43)
[2020-03-10] MEDS ORDERED: INSULIN -REGULAR HUMAN 50 UNIT/0.5 ML ML ONE (00:25)
[2020-03-10 01:38] VITALS: O2SAT 95
[2020-03-10 01:44] VITALS: BP 122/76; TEMP 99.5
--- NOTE | 2020-03-11 12:36 | RAD REPORT ---
EXAM DESCRIPTION: RAD - CHEST TWO VIEWS CLINICAL HISTORY: Cough, patient indicates prior CHF and hypertension history, heart transplant, kidney transplant. COMPARISON: Portable chest December 2016. TECHNIQUE: KRYSTAL and lateral views of the chest were obtained. FINDINGS: Since prior imaging sternotomy wires are in place. A normal sized heart is present. This would match the transplant history. Pacemaker/defibrillator is no longer in place. Patchy interstitial and alveolar opacities are present in the mid and lower left lung field. Post surgical scarring from the patient would be possible. In the acute clinical setting, pneumonia would be most likely. There is questionable patchy pneumonia change in the lateral mid right chest. No pleural effusion or pneumothorax. No vascular engorgement. Heart size is normal. IMPRESSION: Pneumonia findings are present in the mid and lower left lung field and questionably in the lateral mid right lung field.
--- NOTE | 2020-03-16 12:49 | EDPHYS ---
Physician Documentation [facility] Name: Jerome Huang Age: 59 yrs Sex: Male : 1960 Arrival Date: 03/09/2020 Time: 21:56 Bed 19 Private MD: ED Physician Mellissa Monge HPI: 03/09 22:41 This 59 yrs old Black Male presents to ER via Wheelchair with complaints of Cough. kb 22:41 The patient or guardian reports cough, that is intermittent, described as mild, with no kb sputum, flu symptoms, low-grade fever. Onset: The symptoms/episode began/occurred 4 day(s) ago. Severity of symptoms: At their worst the symptoms were moderate, in the emergency department the symptoms are unchanged. Modifying factors: The symptoms are alleviated by nothing, the symptoms are aggravated by nothing. Associated signs and symptoms: Pertinent positives: fever, nausea, Pertinent negatives: chest pain, diarrhea, ear ache, rhinorrhea, sore throat, vomiting. The patient has not experienced similar symptoms in the past. The patient has not recently seen a physician. pt reports cough, low grade fever, malaise, nausea and decreased appetite for 4 days. . Historical: - Allergies: 22:12 Lisinopril; - PMHx: 22:12 CHF; Diabetes - NIDDM; Hypertension; wh - PSHx: 22:12 Heart Transplant; Kidney Transplant; - Immunization history:: Adult Immunizations unknown. - Social history:: Smoking status: Patient/guardian denies using. ROS: 22:39 ENT: Negative for injury, pain, and discharge, Neck: Negative for injury, pain, and kb swelling, Cardiovascular: Negative for chest pain, palpitations, and edema, Back: Negative for injury and pain, MS/Extremity: Negative for injury and deformity, Skin: Negative for injury, rash, and discoloration, Neuro: Negative for headache, weakness, numbness, tingling, and seizure. 22:39 Constitutional: Positive for fever, malaise, poor PO intake, Negative for body aches, chills, fatigue, weight loss. 22:39 Respiratory: Positive for cough, Negative for dyspnea on exertion, hemoptysis, orthopnea, pleurisy, shortness of breath, sputum production, wheezing. 22:39 Abdomen/GI: Positive for nausea, decreased appetite. Exam: 22:40 Constitutional: This is a well developed, well nourished patient who is awake, alert, kb and in no acute distress. Head/Face: Normocephalic, atraumatic. Neck: Trachea midline, no thyromegaly or masses palpated, and no cervical lymphadenopathy. Supple, full range of motion without nuchal rigidity, or vertebral point tenderness. No Meningismus. Chest/axilla: Normal chest wall appearance and motion. Nontender with no deformity. No lesions are appreciated. Cardiovascular: Regular rate and rhythm with a normal S1 and S2. No gallops, murmurs, or rubs. Normal PMI, no JVD. No pulse deficits. Respiratory: Lungs have equal breath sounds bilaterally, clear to auscultation and percussion. No rales, rhonchi or wheezes noted. No increased work of breathing, no retractions or nasal flaring. Abdomen/GI: Soft, non-tender, with normal bowel sounds. No distension or tympany. No guarding or rebound. No evidence of tenderness throughout. Skin: Warm, dry with normal turgor. Normal color with no rashes, no lesions, and no evidence of cellulitis. MS/ Extremity: Pulses equal, no cyanosis. Neurovascular intact. Full, normal range of motion. Neuro: Awake and alert, GCS 15, oriented to person, place, time, and situation. Cranial nerves II-XII grossly intact. Motor strength 5/5 in all extremities. Sensory grossly intact. Cerebellar exam normal. Normal gait. Vital Signs: 22:09 BP 119 / 42; Pulse 83; Resp 18; Temp 100.4; Pulse Ox 95% ; Weight 97.52 kg; Height 5 wh ft. 4 in. (162.56 cm); 23:50 BP 108 / 56; Pulse 84; Resp 18; Pulse Ox 95% on R/A; wh 03/10 00:27 Temp 99.9(O); mg2 00:28 Pulse 76; Resp 18; Pulse Ox 95% on R/A; mg2 01:25 BP 122 / 76; Pulse 78; Resp 18; Temp 99.5; Pulse Ox 95% on R/A; mg2 03/09 22:09 Body Mass Index 36.90 (97.52 kg, 162.56 cm) [facility]: 03/09 22:08 Patient medically screened. kb 22:40 Data reviewed: vital signs, nurses notes. Data interpreted: Pulse oximetry: on room air kb is 95 %. Interpretation: normal. 23:58 Counseling: I had a detailed discussion with the patient and/or guardian regarding: the kb historical points, exam findings, and any diagnostic results supporting the discharge/admit diagnosis, lab results, radiology results, the need for outpatient follow up, a family practitioner, to return to the emergency department if symptoms worsen or persist or if there are any questions or concerns that arise at home. 03/09 22:12 Order name: Flu; Complete Time: 22:57 kb 03/09 23:00 Order name: CBC with Diff; Complete Time: 23:44 kb 03/09 23:00 Order name: Basic Metabolic Panel; Complete Time: 00:12 kb 03/09 23:00 Order name: Blood Culture Adult (2) 03/09 23:01 Order name: Procalcitonin; Complete Time: 00:12 kb 03/09 23:01 Order name: Lactate; Complete Time: 00:11 kb 03/09 22:12 Order name: Chest Pa And Lat (2 Views) XRAY 03/09 23:01 Order name: IV Start; Complete Time: 23:37 kb Administered Medications: 22:25 Drug: Zofran (Ondansetron) 4 mg Route: PO; 03/10 01:27 Follow up: Response: No adverse reaction mg2 03/09 23:32 Drug: Rocephin 1 grams Route: IV; Rate: calculated rate; Site: left antecubital; 03/10 01:27 Follow up: Response: No adverse reaction; IV Status: Completed infusion mg2 03/09 23:34 Drug: Zithromax 500 mg Route: IVPB; Infused Over: 1 hrs; Site: left antecubital; 03/10 01:26 Follow up: Response: No adverse reaction; IV Status: Completed infusion [facility] [place] [place] 03/09 23:36 Drug: Tylenol 650 mg Route: PO; 03/10 01:26 Follow up: Response: No adverse reaction; Temperature is decreased mg2 00: Drug: Insulin Regular Human 10 units {Co-Signature: (Senia Tuttle).} Route: IVP; mg2 Site: left antecubital; : Follow up: Response: No adverse reaction; Blood sugar is lowered mg2 Disposition: 02:44 Co-signature as Attending Physician, Mellissa Monge MD. ma2 Disposition: 03/10/20 00:30 Discharged to Home. Impression: Pneumonia, unspecified organism, Hyperglycemia, unspecified. - Condition is Stable. - Discharge Instructions: Community-Acquired Pneumonia, Adult, [id number], Hyperglycemia, [id number]. - Prescriptions for Zithromax 500 mg Oral Tablet - take 1 tablet by ORAL route once daily for 5 days; 5 tablet. - Medication Reconciliation Form, Thank You Letter, Antibiotic Education, Prescription Opioid Use form. - Follow up: Emergency Department; When: As needed; Reason: Worsening of condition. Follow up: Private Physician; When: 2 - 3 days; Reason: Recheck today's complaints, Continuance of care, Re-evaluation by your physician. Signatures: Dispatcher [employer] [facility] Tiera Giraldo, CAIO VILCHIS-Karthik Tuttle, Mellissa Peerz MD MD ri2 Familia Dia RN RN [address] Corrections: (The following items were deleted from the chart) 01:28 00:30 03/10/2020 00:30 Discharged to Home. Impression: Pneumonia, unspecified organism; mg2 Hyperglycemia, unspecified. Condition is Stable. Discharge Instructions: Community-Acquired Pneumonia, Adult, [id number]. Prescriptions for Zithromax 500 mg Oral Tablet - take 1 tablet by ORAL route once daily for 5 days; 5 tablet. and Forms are Medication Reconciliation Form, Thank You Letter, Antibiotic Education, Prescription Opioid Use. Follow up: Emergency Department; When: As needed; Reason: Worsening of condition. Follow up: Private Physician; When: 2 - 3 days; Reason: Recheck today's complaints, Continuance of care, Re-evaluation by your physician. kb
--- NOTE | 2020-03-16 12:49 | ER ---
Nurse's Notes [facility] Name: Jerome Huang Age: 59 yrs Sex: Male : 1960 Arrival Date: 03/09/2020 Time: 21:56 Bed 19 Private MD: Diagnosis: Pneumonia, unspecified organism;Hyperglycemia, unspecified Presentation: 03/09 22:09 Chief complaint: Patient states: C/O cough, nausea and loss of appetite for 4 days but wh denies fever, vomiting or diarrhea. Coronavirus screen: Surgical mask placed on patient. Patient moved to private room, placed in contact and droplet isolation with eye protection until further assessment. Patient reports a cough. Patient denies shortness of breath or difficulty breathing. Patient reports a measured and/or subjective temperature greater than 100.4F. Patient denies travel on a cruise ship or to a country the [facility] currently lists as an affected area. Patient denies contact with known and/or suspected case of COVID-19. Ebola Screen: Patient negative for fever greater than or equal to 101.5 degrees Fahrenheit, and additional compatible Ebola Virus Disease symptoms Patient denies exposure to infectious person. Initial Sepsis Screen: Does the patient meet any 2 criteria? No. Patient's initial sepsis screen is negative. Does the patient have a suspected source of infection? No. Patient's initial sepsis screen is negative. Risk Assessment: Do you want to hurt yourself or someone else? Patient reports no desire to harm self or others. Onset of symptoms is unknown. 22:09 Method Of Arrival: Wheelchair 22:09 Acuity: JT 3 sg Historical: - Allergies: 22:12 Lisinopril; - PMHx: 22:12 CHF; Diabetes - NIDDM; Hypertension; - PSHx: 22:12 Heart Transplant; Kidney Transplant; - Immunization history:: Adult Immunizations unknown. - Social history:: Smoking status: Patient/guardian denies using. Screenin:13 Abuse screen: Denies threats or abuse. Denies injuries from another. Nutritional screening: No deficits noted. Tuberculosis screening: No symptoms or risk factors identified. Fall Risk None identified. Assessment: 22:15 General: Appears in no apparent distress. Behavior is calm, cooperative, appropriate wh for age. Pain: Denies pain. Neuro: Level of Consciousness is awake, alert, obeys commands, Oriented to person, place, time, situation, Appropriate for age. Cardiovascular: Heart tones S1 S2. Respiratory: Reports cough that is Airway is patent Respiratory effort is even, unlabored, Respiratory pattern is regular, symmetrical, Breath sounds are clear bilaterally. GI: Abdomen is flat, non-distended. : No signs and/or symptoms were reported regarding the genitourinary system. EENT: No signs and/or symptoms were reported regarding the EENT system. Derm: Skin is intact, is healthy with good turgor, Skin is pink, warm \T\ dry. normal. Musculoskeletal: Circulation, motion, and sensation intact. 23:39 Reassessment: Patient appears in no apparent distress at this time. No changes from previously documented assessment. Patient and/or family updated on plan of care and expected duration. Pain level reassessed. Patient is alert, oriented x 3, equal unlabored respirations, skin warm/dry/pink. Vital Signs: 22:09 BP 119 / 42; Pulse 83; Resp 18; Temp 100.4; Pulse Ox 95% ; Weight 97.52 kg; Height 5 ft. 4 in. (162.56 cm); 23:50 BP 108 / 56; Pulse 84; Resp 18; Pulse Ox 95% on R/A; 03/10 00:27 Temp 99.9(O); mg2 00:28 Pulse 76; Resp 18; Pulse Ox 95% on R/A; mg2 01:25 BP 122 / 76; Pulse 78; Resp 18; Temp 99.5; Pulse Ox 95% on R/A; mg2 03/09 22:09 Body Mass Index 36.90 (97.52 kg, 162.56 cm) ED Course: 03/09 21:56 Patient arrived in ED. ds1 21:57 Senia Tuttle is Primary Nurse. 22:08 Tiera Giraldo FNP-C is PHCP. kb 22:08 Mellissa Monge MD is Attending Physician. kb 22:11 Triage completed. 22:13 Arm band placed on right wrist. 22:13 Patient has correct armband on for positive identification. Bed in low position. Call light in reach. Side rails up X 1. Pulse ox on. NIBP on. 22:33 Chest Pa And Lat (2 Views) XRAY In Process Unspecified. EDMS 23:00 Inserted saline lock: 20 gauge in left antecubital area, using aseptic technique. Blood mg2 collected. by JANET Dixon. 03/10 00:27 No provider procedures requiring assistance completed. mg2 01:27 IV discontinued, intact, bleeding controlled, No redness/swelling at site. Pressure mg2 dressing applied. Administered Medications: 03/09 22:25 Drug: Zofran (Ondansetron) 4 mg Route: PO; 03/10 01:27 Follow up: Response: No adverse reaction mg2 03/09 23:32 Drug: Rocephin 1 grams Route: IV; Rate: calculated rate; Site: left antecubital; 03/10 01:27 Follow up: Response: No adverse reaction; IV Status: Completed infusion mg2 03/09 23:34 Drug: Zithromax 500 mg Route: IVPB; Infused Over: 1 hrs; Site: left antecubital; 03/10 01:26 Follow up: Response: No adverse reaction; IV Status: Completed infusion mg2 03/09 23:36 Drug: Tylenol 650 mg Route: PO; 03/10 01:26 Follow up: Response: No adverse reaction; Temperature is decreased mg2 00:26 Drug: Insulin Regular Human 10 units {Co-Signature: (Senia Tuttle).} Route: IVP; mg2 Site: left antecubital; : Follow up: Response: No adverse reaction; Blood sugar is lowered mg2 Outcome: 00:30 Discharge ordered by . kb 01:28 Discharged to home ambulatory. mg2 01:28 Condition: stable 01:28 Discharge instructions given to patient, Instructed on discharge instructions, follow up and referral plans. medication usage, Demonstrated understanding of instructions, follow-up care, medications, Prescriptions given X 1. 01:28 Patient left the ED. mg2 Signatures: Dispatcher [employer] [facility] Tiera Giraldo, CAIO VILCHIS-Ad Fxo RN RN sg [place], Demi ds1 [facility] Familia Dia RN RN [facility] Konrad Marry Corrections: (The following items were deleted from the chart) 03/09 23: 22:09 Acuity: JT [facility]
== END 2020-03-10 01:28 | disposition home or self-care (01) ==
LOC: ER 21:54
DX: J18.9 Pneumonia, unspecified organism (principal); E11.65 Type 2 diabetes mellitus with hyperglycemia; I10 Essential (primary) hypertension; Z88.8 Allergy status to other drugs, medicaments and biological substances; Z94.1 Heart transplant status; Z94.0 Kidney transplant status
CPT/HCPCS: 96365; 87040 ×2; 85025; 80048; 36415; 82947; 83605; 84145; 87804 ×2; 71046; 96375; 99284; J0456; J0696; J7030